=== PATIENT | female | born 1955 | race Caucasian/White ===

== ENCOUNTER → 2016-08-20 | Outpatient (CLI) | payer BC, OTHER ==
[~2016-08-20] MED LIST: CALCTAB30 PO; DICL75TA2 PO; GLC/500 PO; METO50TA16 PO; OMEP20CA59 PO; TRIA37.5 PO; VENL150C56 PO
[2016-08-20 12:22] LABS: BASO % 0.2 %; BASO ABS # 0.02 K/uL (0-0.2); COMPLETE YES; EOS % 1.9 %; HEMATOCRIT 40.5 % (37-47); IG% 0.3 %; LYMPH % 34.7 %; LYMPH ABS # 3.15 K/uL (1.2-3.4); MEAN CELL VOLUME 89.4 fL (80-100); MEAN CORPUSCULAR HGB CONC 33.6 g/dl (32-36); MEAN PLATELET VOLUME 11.6 fL (7.4-10.4); NEUT % 55.9 %; PLATELET COUNT 246 K/uL (130-400); RED BLOOD COUNT 4.53 M/uL (4.2-5.4); WHITE BLOOD COUNT 9.09 K/uL (4.8-10.8)
[2016-08-20 12:30] LABS: ALT/SGPT 47 U/L (12-78); AST/SGOT 24 U/L (15-37); BLOOD UREA NITROGEN 26 mg/dl (7-18); BUN/CREATININE RATIO 21.7 (10-20); CALCIUM 8.8 mg/dl (8.5-10.1); CARBON DIOXIDE 27 mmol/L (21-32); CHLORIDE 103 mmol/L (98-107); GLUCOSE 174 mg/dl (70-99); POTASSIUM 4.3 mmol/L (3.5-5.1); SODIUM 139 mmol/L (136-145)
[2016-08-20 12:33] LABS: ALB/GLOB RATIO 0.9 (0.9-2); ALKALINE PHOSPHATASE 117 U/L (45-117); CHOLESTEROL 122 mg/dl (0-200); CHOLESTEROL/HDL RATIO 3.1; HDL CHOLESTEROL 39 mg/dl; LDL CHOLESTEROL CALCULATED 46 mg/dl; TRIGLYCERIDES 184 mg/dl (0-150); VERY LOW DENSITY LIPOPROT CALC 37 mg/dl
[2016-08-20 12:56] LABS: ESTIMATED AVERAGE GLUCOSE 194 mg/dl; HA1C FLAG Normal (Normal)
== END | disposition home or self-care (01) ==
LOC: C.LABBFT 07:39
PROVIDERS: ATTEND Internal Medicine
DX: Z00.00 Encounter for general adult medical examination without abnormal findings (principal); E11.9 Type 2 diabetes mellitus without complications; E78.5 Hyperlipidemia, unspecified; R19.7 Diarrhea, unspecified; I10 Essential (primary) hypertension; R74.8 Abnormal levels of other serum enzymes

== ENCOUNTER → 2016-12-24 | Outpatient (CLI) | payer BC ==
[2016-12-24 12:21] LABS: AST/SGOT 40 U/L (15-37); BLOOD UREA NITROGEN 23 mg/dl (7-18); BUN/CREATININE RATIO 19.2 (10-20); CALCIUM 9.4 mg/dl (8.5-10.1); CARBON DIOXIDE 29 mmol/L (21-32); CHLORIDE 102 mmol/L (98-107); GLUCOSE 172 mg/dl (70-99); POTASSIUM 4.3 mmol/L (3.5-5.1); SODIUM 138 mmol/L (136-145)
[2016-12-24 12:25] LABS: ALKALINE PHOSPHATASE 124 U/L (45-117); ALT/SGPT 66 U/L (12-78)
[2016-12-24 12:36] LABS: ESTIMATED AVERAGE GLUCOSE 197 mg/dl; HA1C FLAG Normal (Normal)
[2016-12-24 12:51] LABS: RATIO 13.3 mcg/mg (0-30.0)
== END | disposition home or self-care (01) ==
LOC: C.LABBFT 07:51
PROVIDERS: ATTEND Internal Medicine
DX: I10 Essential (primary) hypertension (principal)

== ENCOUNTER → 2017-01-23 | Outpatient (CLI) | payer BC ==
--- NOTE | 2017-01-24 13:58 | MAMMOGRAPHY REPORT ---
BILATERAL DIGITAL SCREENING MAMMOGRAM TOMOSYNTHESIS WITH CAD: 01/23/2017 CLINICAL HISTORY: Routine screening. Patient has no complaints. TECHNIQUE: Breast tomosynthesis in addition to standard 2D mammography was performed. Current study was also evaluated with a Computer Aided Detection (CAD) system. COMPARISON: Comparison is made to exams dated: 01/23/2016 mammogram, 01/17/2015 mammogram, 02/19/2013 mamm ogram, 02/20/2012 mammogram, 02/19/2011 mammogram, and 01/03/2010 mammogram - [facility] . BREAST COMPOSITION: The tissue of both breasts is heterogeneously dense, which may obscure small mas ses. FINDINGS: No suspicious masses, calcifications, or areas of architectural distortion are noted in ei ther breast. There has been no significant interval change compared to prior exams. IMPRESSION: ACR BI-RADS CATEGORY 1: NEGATIVE There is no mammographic evidence of malignancy. A 1 year screening mammogram is recommended. The pa tient will receive written notification of the results. Approximately 10% of breast cancers are not detected with mammography. A negative mammographic report should not delay biopsy if a clinically suggestive mass is present. Aura Miles M.D. ah/:01/23/2017 16:48:06 Captain Fishing Vessel: Keerthi RODRÍGUEZ(Kamini)(M), [facility] letter sent: Normal 1/2 BI-RADS Code: ACR BI-RADS Category 1: Negative
== END | disposition home or self-care (01) ==
LOC: C.MAMM 16:31
PROVIDERS: ATTEND Internal Medicine
DX: Z12.31 Encounter for screening mammogram for malignant neoplasm of breast (principal)

== ENCOUNTER → 2018-01-26 | Outpatient (CLI) | payer BC ==
--- NOTE | 2018-01-27 14:57 | MAMMOGRAPHY REPORT ---
BILATERAL DIGITAL SCREENING MAMMOGRAM TOMOSYNTHESIS WITH CAD: 01/26/2018 CLINICAL HISTORY: Routine screening. TECHNIQUE: The study was acquired using full field digital technology and interpreted from soft copy. Breast tomosynthesis in addition to standard 2D mammography was performed. Current study was also ev aluated with a Computer Aided Detection (CAD) system. COMPARISON: Comparison is made to exams dated: 01/23/2017 mammogram, 01/23/2016 mammogram, 01/17/2015 jos mogram, 02/19/2013 mammogram, 02/20/2012 mammogram, and 02/19/2011 mammogram - [facility] . BREAST COMPOSITION: The tissue of both breasts is heterogeneously dense, which may obscure small mass es. FINDINGS: The parenchymal pattern is unchanged. No developing mass, architectural distortion or cluster of susp icious microcalcifications is seen in either breast. IMPRESSION: ACR BI-RADS CATEGORY 2: BENIGN There is no mammographic evidence of malignancy. A 1 year screening mammogram is recommended.( 019) The patient will receive written notification of the results. Some breast cancers are not detected with mammography. A negative mammographic report should not yvonne y biopsy if a clinically suggestive mass is present. Selene Mccartney M.D. ay/:01/26/2018 16:39:07 Merchandise Manager: RT Saqib(R)(M), [facility] letter sent: Normal 1/2 BI-RADS Code: ACR BI-RADS Category 2: Benign
== END | disposition home or self-care (01) ==
LOC: C.MAMM 16:20
PROVIDERS: ATTEND Family Medicine
DX: Z12.31 Encounter for screening mammogram for malignant neoplasm of breast (principal)

== ENCOUNTER 2024-08-03 06:46 | Inpatient (IN) ==
--- OUTSIDE RECORDS SUMMARY | 2024-08-03 06:50 | External Medical Summary | Summary of Care ---
Author Name Unknown Organization [facility] Address [address] [place] [address] Phone [phone] Care Team Providers Care Transit Bus Operator Name Role Phone EmmastephanieKeerthi carmichael Primary Care Provider Encounter Details Date Type Department Care Team (Late st Contact Info) Description 07/06/2024 Population Health External Data Unspecified Department Allergies Active Allergy Reactions Criticality Noted Date Comments Pollen Other (Please comment) 10/30/2021 Sinus symptoms, blocked ears Ragweed Other (Please comment) 10/30/2021 Sinus symptoms, blocked ears documented as of this encounter (statuses as of 07/06/2024) Medications B-12-SL 1000 MCG Sublingual Tablet Sublingual (Cyanocobalamin) Indications:Pare sthesias Place 1,000 mcg under the tongue daily. 90 Tab 1 0 Active Loratadine 10 MG Oral Capsule Take 1 Capsule by mouth in the morning. Active Omeprazole 20 MG Oral Capsule Delayed Release (PriLOSEC)Indica tions:Gastroesop hageal reflux disease, unspecified whether esophagitis present TAKE 1 CAPSULE BY MOUTH 1 HOUR PRIOR TO THE FIRST MEAL OF THE DAY 100 Capsule 3 05/31/2024 8:26 AM EST 4 Active Metoprolol Tartrate 50 MG Oral Tablet (Lopressor)Indic ations:HTN, goal below 130/80 TAKE ONE TABLET BY MOUTH IN THE MORNING AND ONE TABLET BEFORE BEDTIME 180 Tablet 3 04/12/2024 6:22 PM EDT 4 10/16/19 25 Active metFORMIN HCl ER 500 MG Oral Tablet Extended Release 24 Hour (Glucophage XR)Indications:P rediabetes TAKE TWO TABLETS BY MOUTH TWICE A DAY. 360 Tablet 05/24/2024 6:33 PM EST 4 05/22/20 25 Active Clobetasol Propionate 0.05 % External Ointment (Temovate)Indica tions:Lichen sclerosus APPLY FINGERTIP SIZED AMOUNT ALL OVER VULVA ONCE DAILY FOR FOUR WEEKS, THEN EVERY OTHER DAY FOR FOUR WEEKS, THEN FOR TWO DAYS A WEEK 60 g 3 05/24/2024 6:33 PM EST 4 Active Ondansetron HCl 4 MG Oral TabletIndication s:Nausea Take 1 Tablet by mouth every 8 hours as needed for Nausea. 45 Tablet 05/24/2024 6:33 PM EST 4 Active Rosuvastatin Calcium 20 MG Oral Tablet (Crestor)Indicat ions:Dyslipidemi a TAKE ONE TABLET BY MOUTH EVERY DAY. 100 Tablet 2 06/14/2024 5:59 PM EST 4 06/14/20 25 Active Losartan Potassium 50 MG Oral Tablet (Cozaar) TAKE ONE TABLET BY MOUTH IN THE MORNING. 100 Tablet 2 06/14/2024 5:59 PM EST 4 06/14/20 25 Active hydroCHLOROthiaz salbador 12.5 MG Oral Capsule TAKE ONE CAPSULE BY MOUTH IN THE MORNING. 100 Capsule 2 06/14/2024 5:59 PM EST 4 06/14/20 25 Active FLUoxetine HCl 40 MG Oral Capsule (PROzac)Indicati ons:Moderate major depression (HCC) TAKE ONE CAPSULE BY MOUTH EVERY MORNING 100 Capsule 2 06/14/2024 5:59 PM EST 4 06/14/20 25 Active documented as of this encounter (statuses as of 07/06/2024) Active Problems Problem Noted Date Diagnosed Date Hyperlipidemia 07/29/2022 H/O colonoscopy with polypectomy 08/24/2021 Lichen sclerosus 04/09/2021 Moderate episode of recurrent major depressive d isorder 09/20/2020 Prediabetes 06/29/2018 Overview: Per Prediabetes protocol #1 HTN, goal below 130/80 04/08/2018 Moderate major depression 07/24/2017 Sciatica 11/11/2003 Overview (11/11/2003): Secondary to facet arthropathy L5-S1, left. Displacement of lumbar inter vertebral disc without myelopathy 11/11/2003 Overview (11/11/2003): Midline/left L5-S1 Reflux esophagitis 11/11/2003 HYPERTENSION NOS 11/11/2003 documented as of this encounter (statuses as of 07/06/2024) Immunizations Name Administration Dates Next Due COVID-19 mRNA, LNP-s, No Pre serve, 2-Dose Series ([employer]) 05/15/2021,11/23/2020,11/02/2020 PPD 03/25/2018 Seasonal Influenza, High Dos e, Trivalent, PF, IM (Fluzone HD) 04/26/2024 Seasonal Influenza, PF, 6 M & above, IM , (FluLaval or Fluzone) 03/21/2020,05/17/2019,03/25/2018 Seasonal Influenza, QUAD, wi th Preserv, 6 mons & Above, 0.5 mL, IM 03/16/2017 Seasonal Influenza, Quadriva lent Hd (Fluzone Hd) 05/19/2023,04/29/2022,03/23/2021 documented as of this encounter Social History Tobacco Use Types Packs/Day Years Used Date Smoking Tobacco: Never Passive Smoke Exposure: Past Smokeless Tobacco: Never Alcohol Use Standard Drinks/Week Comments No 0 (1 standard drink = 0.6 oz pur e alcohol) PHQ-2 Answer Date Recorded PHQ Adult Total Score 0 05/24/2024 Hunger Vital Sign Answer Date Recorded Within the past 12 months, y ou worried that your food would run out before you got the money to buy more. Never true 05/24/20 24 Within the past 12 months, t he food you bought just didn't last and you didn't have money to get more. Never true 05/24/2024 Childcare Answer Date Recorded Do you feel overwhelmed with taking care of a child, family member or friend? No 05/24/2024 Does your family need help f inding childcare? (Household - for ages 0-17 years) Not on file 05/24/2024 Clothing Answer Date Recorded Have you been unable to get clothing when it was really needed? No 05/24/2024 Is your family able to get c lothes or diapers when needed? (Household - for ages 0-17 years) Not on file 05/24/2024 Personal Safety Answer Date Recorded Do you feel unsafe or have concerns for your saf ety? No 05/24/2024 Do you have concerns for you r family's safety? (Household - for ages 0-17 years) Not on file 05/24/2024 Utilities Answer Date Recorded Do you have trouble paying y our heating, water, or electric bill? No 05/24/2024 Is your family able to pay t he heat, water, or electric bill? (Household - for ages 0-17 years) Not on file 05/24/2024 Does your family have access to good internet? (Household - for ages 0-17 years) Not on file 05/24/2024 Employment Status Answer Date Recorded Are you unemployed or without regular income? No 05/24/2024 Does the [facility] have a [facility] source [facility] income? (Household - for ages 0-17 years) Not on file 05/24/2024 Social Connections Answer Date Recorded How often do you feel lonely or isolated from th ose around you? Never 05/24/2024 Financial Resource Strain Answer Date R ecorded Do you have any trouble payi ng for your medications, or do you think you might in the future? No 05/24/2024 Does your family have troubl e paying for medicine? (Household - for ages 0-17 years) Not on file 05/24/2024 Transportation Needs Answer Date Record ed Do you have trouble getting a ride to medical visits or work? (Adult - for ages 18 years and over) Not on file 05/24/2024 Does your family have a hard time getting a ride to doctors visits? (Household - for ages 0-17 years) Not on file 05/24/2024 Has lack of transportation k ept you from medical appointments, meetings, work, or from getting things needed for daily living? Check all that apply. No 05/24/2024 Do you (or your family) have trouble finding or paying for a ride (transportation)? (Household - for ages 0-17 years) Not on file 05/24/2024 Housing Stability Answer Date Recorded Do you currently live in a s helter or have no steady place to sleep at night? No 05/24/2024 Do you think you are at risk of becoming homeless? (Adult - for ages 18 years and over) Not on file 05/24/2024 Does your family worry about paying for your home or becoming homeless? (Household - for ages 0-17 years) Not on file 1 07/25/2023 Are you homeless or worried that you might be in the future? No 05/24/2024 Are you (or your family) arlet eless or worried that you might be in the future? (Household - for ages 0-17 years) Not on file Food Insecurity Answer Date Recorded Do you need food for this week? No 05/24/2024 Are you able to get enough f ood for your family? (Household - for ages 0-17 years) Not on file 05/24/2024 Does your family need food t his week? (Household - for ages 0-17 years) Not on file 05/24/2024 Do you always have enough fo od for your family? (Household - for ages 0-17 years) Not on file 05/24/2024 Comments No Sex and Gender Information Value Date Recorded Sex Assigned at Female 01/27/2023 10:12 AM EDT Legal Sex Female 5:30 AM EST Gender Identity Female 01/27/2023 10:12 AM EDT Sexual Orientation Straight 01/27/2023 10 :12 AM EDT documented as of this encounter Plan of Treatment Upcoming Encounters Date Type Department Care Team (Late st Contact Info) Description 09/27/2024 9:20 AM EDT Office Visit Family Practice [address] [place] [address] [place] [address] Keerthi Zuluaga DO [address] [place] [address] Scheduled Procedures Name Priority Associated Diagnoses Date/Ti me COLONOSCOPY FLEXIBLE PROXIMAL DIAGNOSTIC Recall History of colon polyps Health Maintenance Due Date Last Done Comments DTap/Tdap Vaccines (1 - Tdap) 10/16/1974 Cologuard 10/16/2000 Fecal Occult Blood Test 10/16/2000 Sigmoidoscopy 10/16/2000 Pneumococcal Vaccine: 50+ Years (1 of 1 - PCV) 10/16/2005 Zoster Vaccines (1 of 2) 10/16/2005 Adult Wellness Visit 01/28/2024 01/27/2023 COVID-19 Vaccine ( - season) 2024 05/15/2021, 11/23/2020, 11/02/2020 Depression Monitoring 05/24/2025 05/24/2024 GFR 05/24/2025 05/24/2024, 09/2022, 10/18/2022, Additional history exists HbA1c 05/24/2025 05/24/2024, 09/2022, 04/23/2022, Additional history exists Mammogram 06/14/2025 06/14/2024, 05/18, 06/11/2023, Additional history exists Colonoscopy 12/05/2026 12/05/2021, 11/15, 08/28/2018, Additional history exists Colorectal Cancer Screening 12/05/2026 Albumin/Creatinine Ratio 05/24/2027 024, 05/19/2023, 04/29/2022, Additional history exists DXA Scan 05/08/2028 05/08/2021, 05/08/2021 Lipid Panel 05/24/2029 05/24/2024, 09/2022, 04/23/2022, Additional history exists Pap Smear Discontinued 05/17/2020, 070 10/2015, 12/14/2014 (Done elsewhere) RETIRED - COLONOSCOPY-EVERY 5 YRS AGES 18-100 Discontinued 12/05/2021, 12/05/2021, 08/28/2018, Additional history exists Influenza Vaccine (FLU shot) Completed 04/26/2024, 04/26/2024, 05/19/2023, Additional history exists HPV (Gardasil) Vaccine Aged Out No lo nger eligible based on patient's age to complete this topic Hepatitis B Vaccine Aged Out No longe r eligible based on patient's age to complete this topic MENINGOCOCCAL (MENACTRA/MENVEO) Aged Out No longer eligible based on patient's age to complete this topic documented as of this encounter Medical Devices Not on filedocumented as of this encounter Care Teams Transit Bus Operator Relationship Specialty Start Date End Date Keerthi Zuluaga DO [address] [place] [facility] [place] [address] PCP - General Family Medicine 01/24/24 documented as of this encounter
--- OUTSIDE RECORDS SUMMARY | 2024-08-03 06:51 | External Medical Summary | Summary of Care ---
Author Name Unknown Organization [facility] Address [address] [place] [address] Phone [phone] Care Team Providers Care Aircrewman Name Role Phone Keerthi Zuluaga DO Primary Care Provider [phone] Reason for Visit * Reason Onset Date Comments Appointment 06/23/2024 Encounter Details Date Type Department Care Team (Late st Contact Info) Description 06/23/2024 Telephone Family Practice [address] [facility], [place] [address] [place] [address] Keerthi Zuluaga DO [address] [place] [address] Appointment Allergies Active Allergy Reactions Criticality Noted Date Comments Pollen Other (Please comment) 10/30/2021 Sinus symptoms, blocked ears Ragweed Other (Please comment) 10/30/2021 Sinus symptoms, blocked ears documented as of this encounter (statuses as of 06/23/2024) Medications B-12-SL 1000 MCG Sublingual Tablet Sublingual [...] 5:59 PM EST 4 06/14/20 25 Active Amoxicillin-Pot Clavulanate 875-125 MG Oral Tablet (Augmentin) Take 1 Tablet by mouth in the morning and 1 Tablet before bedtime. Do all this for 10 days. 20 Tablet 5 07/03/19 25 Active documented as of this encounter (statuses as of 06/23/2024) Active Problems Problem Noted Date Diagnosed Date [...] as of this encounter (statuses as of 06/23/2024) Immunizations Name Administration Dates Next Due COVID-19 mRNA, LNP-s, No Pre serve, 2-Dose Series ([employer]) 05/15/2021,11/23/2020,11/02/2020 PPD 03/25/2018 Seasonal Influenza, High Dos [...] No 05/24/2024 Does the household have a re lar source of income? (Household - for ages [...] AM EDT documented as of this encounter Miscellaneous Notes * Telephone Encounter - Ladonna Campuzano LPN - 06/23/2024 2:03 PM EST Call placed to patient and relayed information from Dr. Zuluaga. Pt acknowledged understanding andstates she will comply. No questions at this time. * Telephone Encounter - Keerthi Zuluaga DO - 06/23/2024 1:43 PM EST Please let pt know that I sent Augmentin. OV if worsening or no improvement. * Telephone Encounter - Ladonna Campuzano LPN - 06/23/2024 12:04 PM EST Call placed to patient. Reports the following symptoms: Nasal congestion, states sinus pressure is bad - pain around nose, sinuses. Having yellow sinus drainage. No new ear pain or headaches. Productive cough, having coughing episodes. No shortness of breath when not coughing. States she feels she has a sinus infection. Reports symptoms have been going for approx 3 weeks. No fever that she is aware of. Has not done a COVID test. Please advise. [facility] in [place]. * Telephone Encounter - Kia Velazco OSA - 06/23/2024 8:03 AM EST Patient is requesting appt today and there is no available appts. Please see call details. documented in this encounter Plan of Treatment Upcoming Encounters Date Type Department Care Team (Late st Contact Info) Description 09/27/2024 9:20 AM EDT Office Visit Family Practice [address] [place] [address] [place] [address] Keerthi Zuluaga DO [address] [facility], [place] [address] Scheduled Procedures Name Priority Associated Diagnoses Date/Ti me COLONOSCOPY FLEXIBLE PROXIMAL DIAGNOSTIC Recall History of colon polyps Health Maintenance Due Date Last Done Comments DTap/Tdap Vaccines (1 - Tdap) 10/16/1974 Cologuard 10/16/2000 Fecal Occult Blood Test 10/16/2000 Sigmoidoscopy 10/16/2000 Pneumococcal Vaccine: 50+ Years (1 of 1 - PCV) 10/16/2005 Zoster Vaccines (1 of 2) 10/16/2005 Adult Wellness Visit 01/28/2024 01/27/2023 COVID-19 Vaccine ( season) 2024 05/15/2021, 11/23/2020, 11/02/2020 Depression Monitoring 05/24/2025 05/24/2024 GFR 05/24/2025 05/24/2024, 09/2022, 10/18/2022, Additional history exists HbA1c 05/24/2025 05/24/2024, 09/2022, 04/23/2022, Additional history exists Mammogram 06/14/2025 06/14/2024, 05/17, 06/11/2023, Additional history exists Colonoscopy 12/05/2026 12/05/2021, 11/15, 08/28/2018, Additional history exists Colorectal Cancer Screening 12/05/2026 Albumin/Creatinine Ratio 05/24/2027 024, 05/19/2023, 04/29/2022, Additional history exists DXA Scan 05/08/2028 05/08/2021, 05/08/2021 Lipid Panel 05/24/2029 05/24/2024, 09/2022, 04/23/2022, Additional history exists Pap Smear Discontinued 05/17/2020, 10/2015, 12/14/2014 (Done elsewhere) RETIRED - COLONOSCOPY-EVERY [...] filedocumented as of this encounter Care Teams Aircrewman Relationship Specialty Start Date End Date Keerthi Zuluaga DO [address] [place] [address] PCP - General Family Medicine 01/24/24 documented as of this encounter
--- OUTSIDE RECORDS SUMMARY | 2024-08-03 06:51 | External Medical Summary | Summary of Care ---
Author Name Unknown Organization [facility] Address [address] [place] [address] Phone [phone] Care Team Providers Care Dividend Clerk Name Role Phone Keerthi Phan DO Primary Care Provider Reason for Visit * Reason Comments Medication Refill Encounter Details Date Type Department Care Team (Late st Contact Info) Description 05/21/2024 Refill Family Practice [address], [facility] [address] [place] [phone] Keerthi Phan DO [address] [place] [address] Encounter for long-term (current) use of medications*; Prediabetes; Hyperlipidemia, unspecified hyperlipidemia type Allergies Active Allergy Reactions Criticality Noted Date Comments Pollen Other (Please comment) 10/30/2021 Sinus symptoms, blocked ears Ragweed Other (Please comment) 10/30/2021 Sinus symptoms, blocked ears documented as of this encounter (statuses as of 05/25/2024) Medications B-12-SL 1000 MCG Sublingual Tablet Sublingual (Cyanocobalamin )Indications:Pa resthesias Place 1,000 mcg under the tongue daily. 90 Tab 1 0 Active Loratadine 10 MG Oral Capsule Take 1 Capsule by mouth in the morning. Active Omeprazole 20 MG Oral Capsule Delayed Release (PriLOSEC)Indic ations:Gastroes ophageal reflux disease, unspecified whether esophagitis present TAKE 1 CAPSULE BY MOUTH 1 HOUR PRIOR TO THE FIRST MEAL OF THE DAY 100 Capsule 3 02/25/2024 1:49 PM EDT 4 Active Rosuvastatin Calcium 20 MG Oral Tablet (Crestor)Indica tions:Dyslipide sirisha TAKE ONE TABLET BY MOUTH EVERY DAY. 100 Tablet 2 03/08/2024 8:53 AM EDT 4 08/22/19 25 Active Losartan Potassium 50 MG Oral Tablet (Cozaar) TAKE ONE TABLET BY MOUTH IN THE MORNING. 100 Tablet 2 03/08/2024 8:53 AM EDT 4 08/22/19 25 Active hydroCHLOROthia zide 12.5 MG Oral Capsule TAKE ONE CAPSULE BY MOUTH IN THE MORNING. 100 Capsule 2 03/08/2024 8:53 AM EDT 4 08/22/19 25 Active FLUoxetine HCl 40 MG Oral Capsule (PROzac)Indicat ions:Moderate major depression (HCC) TAKE ONE CAPSULE BY MOUTH EVERY MORNING 100 Capsule 2 03/08/2024 8:53 AM EDT 4 08/22/19 25 Active Metoprolol Tartrate 50 MG Oral Tablet (Lopressor)Falguni cations:HTN, goal below 130/80 TAKE ONE TABLET BY MOUTH IN THE MORNING AND ONE TABLET BEFORE BEDTIME 180 Tablet 3 04/12/2024 6:22 PM EDT 4 10/16/19 25 Active metFORMIN HCl ER 500 MG Oral Tablet Extended Release 24 Hour (Glucophage XR)Indications: Prediabetes TAKE TWO TABLETS BY MOUTH TWICE A DAY. 360 Tablet 05/24/2024 6:33 PM EST 4 05/22/20 25 Active metFORMIN HCl ER 500 MG Oral Tablet Extended Release 24 Hour (Glucophage XR)Indications: Prediabetes TAKE TWO TABLETS BY MOUTH TWICE A DAY. 360 Tablet 3 02/23/2024 12:56 PM EDT 3 05/21/20 24 Discontinu ed(Refill) Clobetasol Propionate 0.05 % External Ointment (Temovate)Indic ations:Lichen sclerosus APPLY FINGERTIP SIZED AMOUNT ALL OVER VULVA ONCE DAILY FOR FOUR WEEKS, THEN EVERY OTHER DAY FOR FOUR WEEKS, THEN FOR TWO DAYS A WEEK 60 g 3 09/24/2023 12:49 PM EDT 4 05/24/20 24 Discontinu ed(Refill) Ondansetron HCl 4 MG Oral Tablet Take 1 Tablet by mouth every 8 hours as needed for Nausea. 45 Tablet 09/24/2023 12:49 PM EDT 4 05/24/20 24 Discontinu ed(Refill) documented as of this encounter (statuses as of 05/25/2024) Active Problems Problem Noted Date Diagnosed Date [...] as of this encounter (statuses as of 05/25/2024) Immunizations Name Administration Dates Next Due COVID-19 mRNA, LNP-s, No Pre serve, 2-Dose Series ([employer]) 05/15/2021,11/23/2020,11/02/2020 PPD 03/25/2018 Seasonal Influenza, High Dos [...] 05/24/2024 Does the household have a re gular source of income? (Household - for ages [...] encounter Miscellaneous Notes * Telephone Encounter - Alfonso Lezama - 05/25/2024 9:35 AM EST Received message from [facility] regarding patient needing labs. Patient was notified. Successfully contacted patient and provided [facility] message. * Telephone Encounter - Sharonda Myrick [facility] - 05/22/2024 9:54 AM ESTSigned Prescriptions: Disp Refills metFORMIN HCl ER 500 MG Oral Tablet Extend*360 Ta*0 Sig: TAKE TWO TABLETS BY MOUTH TWICE A DAY. Authorizing Provider: KEERTHI PHAN Ordering User: SHARONDA MYRICK * Telephone Encounter - Sharonda Myrick [facility] - 05/22/2024 9:53 AM EST Provided 90 days supply with 0 refill(s). Per refill protocol patient should have routine labs on file within past year. Reviewed AMP report, Care Gaps/Health Maintenance, medications list, and for any routine labs typically ordered for this patient. Lab orders placed. Please contact patient to advise of labs ordered for blood draw AND URINE specimen (patient will have to be able to void to provide sample). Recommend patient to fast if able for labs. Patient may still have water and regular medications. Advise to obtain labs before requesting the next refill. ThanksSharonda Clinical Pharmacist [facility] ([facility]) [phone] 05/22/2024, 9:53 AM documented in this encounter Plan of Treatment Upcoming Encounters Date Type Department Care Team (Late st Contact Info) Description 06/14/2024 12:30 PM EST Imaging Radiology [facility] 1st [facility], [facility] [address] [place] [address] 09/27/2024 9:20 AM EDT Office Visit Family Practice [address], [facility] [address] [place] [phone] [facility]thi Phan [facility] [address] [facility] [address] Scheduled Procedures Name Priority Associated Diagnoses Date/Ti me COLONOSCOPY FLEXIBLE PROXIMAL DIAGNOSTIC Recall History of colon polyps Health Maintenance Due Date Last Done Comments Cologuard 10/16/2000 Fecal Occult Blood Test 10/16/2000 Sigmoidoscopy 10/16/2000 Adult Wellness Visit 01/28/2024 01/27/2023 COVID-19 Vaccine ( season) 2024 05/15/2021, 11/23/2020, 11/02/2020 Postponed from 02/15/2024 (Patient Declined After Education) DTap/Tdap Vaccines (1 - Tdap) 05/25/2024 Postponed from 10/16/1974 (Patient Declined After Education) Pneumococcal Vaccine: 65+ Years (1 of 1 - PCV) 05/25/2024 Postponed from 10/16/2020 (Patient Declined After Education) Zoster Vaccines (1 of 2) 05/25/2024 Pos tponed from 10/16/2005 (Patient Declined After Education) Mammogram 06/11/2024 06/11/2023, 05/17, 06/02/2023, Additional history exists Depression Monitoring 05/24/2025 05/24/2024 GFR 05/24/2025 05/24/2024, 09/2022, 10/18/2022, Additional history exists HbA1c 05/24/2025 05/24/2024, 09/2022, 04/23/2022, Additional history exists Colonoscopy 12/05/2026 12/05/2021, 11/15, 08/28/2018, Additional history exists Colorectal Cancer Screening 12/05/2026 Albumin/Creatinine Ratio 05/24/20272 024, 05/19/2023, 04/29/2022, Additional history exists DXA [...] Not on filedocumented as of this encounter Results * ALBUMIN / CREATININE RATIO, URINE (05/24/2024 10:48 AM EST) Albumin, Random Urine <1.20 mg/dL 05/25/2024 12:08 AM EST [facility] Creatinine, Random Urine 109 mg/dL 05/25/2024 12:08 AM EST [facility] Albumin / Creatinine Ratio, Urine <11 <30 mg/g Creat 05/25/2024 12:08 AM EST [facility] Urine Urine specimen obtained by clean catch procedure / Unknown Non-blood Collection / Unknown 05/24/2024 10:48 AM EST 05/24/2024 10:48 AM EST Narrative [facility] - 05/25/2024 12:08 AM EST Normal: <30 mg/g creatinine High: 30-300 mg/g creatinine Very High: >300 mg/g creatinine Nephrotic: >2200 mg/g creatinine Sharonda Myrick [facility] LAB URINE ORDERABLES Final R esult [facility] [address] [place] [address] * (ABNORMAL) VITAMIN B12 (05/24/2024 10:44 AM EST) Vitamin B12 1,862(H) 232 - 1,245 pg/mL 05/25/2024 5:28 AM EST [facility] Blood Venous blood specimen / Unknown Venipuncture / Unknown 05/24/2024 10:44 AM EST 05/24/2024 10:44 AM EST Sharonda Myrick [facility] LAB BLOOD ORDERABLES Final R esult Performing Organization Address City/[facility]/ZIP Co de Phone Number LAB[facility]ATORY [facility] [address] [place] [address] * LIPID PANEL WITH DIRECT LDL IF TG IS HIGH (05/24/2024 10:44 AM EST) Pathologist [facility] Triglycerides 113 <=174 mg/dL 05/25/2024 4:08 AM EST [facility] Comment: Triglyceride Reference Ranges (mg/dL): <150 Acceptable 150-174 Borderline high 175-499 High >=500 Very high Cholesterol 133 <200 mg/dL 05/25/2024 4:08 AM EST [facility] Comment: Total Cholesterol Reference Ranges (mg/dL): <200 Desirable 200-239 Borderline high >=240 High HDL Cholesterol 53 >49 mg/dL 4:08 AM EST [facility] Comment: HDL Cholesterol Reference Ranges (mg/dL): >=60 High (Desirable) <50 Low (Undesirable) For Females <40 Low (Undesirable) For Males Non-HDL Cholesterol 80 <=159 mg/dL 05/25/2024 4:08 AM EST [facility] Comment: Non-HDL Cholesterol Reference Range (mg/dL): <100 Target level for high risk ASCVD patient <130 Optimal for general population 130-159 Near optimal for general population 160-189 Borderline High 190-219 High >=220 Very High LDL Cholesterol 57 <=129 mg/dL 05/25/2024 4:08 AM EST LAB[facility] Comment: LDL Cholesterol Reference Ranges (mg/dL): <70 Target level for high risk ASCVD patient <100 Optimal for general population 100-129 Near optimal for general population 130-159 Borderline high 160-189 High >=190 Very high Blood Venous blood specimen / Unknown Venipuncture / Unknown 05/24/2024 10:44 AM EST 05/24/2024 10:44 AM EST [facility] LAB BLOOD ORDERABLES Final R esult Performing Organization Address [facility] de Phone Number LABORATORY [facility] [address] [place] [address] * (ABNORMAL) HEMOGLOBIN A1C (05/24/2024 10:44 AM EST) Hemoglobin A1C 6.5(H) 4.0 - 5.6 % 05/25/2024 4:13 AM EST [facility]ORY [facility] Comment:The use of HbA1c to monitor glycemic status is based on normal hemoglobin and HbA composition. This test should not be used in patients with abnormal hemoglobin that affects the half life of the red blood cell or the in vivo glycation rates. Estimated Average Glucose 140(H) <126 mg/dL 05/25/2024 4:13 AM EST [facility]ORY [facility] Blood Venous blood specimen / Unknown Venipuncture / Unknown 05/24/2024 10:44 AM EST 05/24/2024 10:44 AM EST [facility] LAB BLOOD ORDERABLES Final R [facility] Performing Organization Address [facility] de Phone Number LABORATORY [address] [address] * BASIC METABOLIC PANEL (05/24/2024 10:44 AM EST) BUN 18 6 - 20 mg/dL 05/25/2024 4:08 AM EST [facility] CREATININE 0.9 0.5 - 1.0 mg/dL 05/25/2024 4:08 AM EST [facility] EGFR 74 >=60 mL/min 05/25/2024 4:08 AM EST [facility] Comment:eGFR is calculated b ased on the CKD-EPI 2020 equation. SODIUM 138 135 - 146 mmol/L 05/25/2024 4:08 AM EST [facility] POTASSIUM 4.7 3.5 - 5.1 mmol/L 05/25/2024 4:08 AM EST [facility] CHLORIDE 99 98 - 107 mmol/L 05/25/2024 4:08 AM EST [facility] CO2 26 22 - 32 mmol/L 05/25/2024 4:08 AM EST [facility] ANION GAP 13 7 - 15 mmol/L 05/25/2024 4:08 AM EST [facility] GLUCOSE 70 70 - 120 mg/dL 05/25/2024 4:08 AM EST [facility] CALCIUM 10.2 8.4 - 10.2 mg/dL 05/25/2024 4:08 AM EST [facility] Blood Venous blood specimen / Unknown Venipuncture / Unknown 05/24/2024 10:44 AM EST 05/24/2024 10:44 AM EST Sharonda Myrick [facility] LAB BLOOD ORDERABLES Final R esult [facility] [address] [place] [address] documented in this encounter Visit Diagnoses Diagnosis Encounter for long-term (current) use of medications- Primary Encounter for long-term (current) use of other medications Prediabetes Other abnormal glucose Hyperlipidemia, unspecified hyperlipidemia type documented in this encounter Care Teams Dividend Clerk Relationship Specialty Start Date End Date Keerthi Phan DO [address] [place] [address] PCP - General Family Medicine 01/24/24 documented as of this encounter
--- OUTSIDE RECORDS SUMMARY | 2024-08-03 06:51 | External Medical Summary ---
Author Name Unknown Address Unknown Organization K01:[facility] [address] [facility] [address] [facility] [address] Laboratory Report Ordering Provider Test Date Status KING CANALES 05/24/2024 10:44:53 Final Observation Date Value Abnormality Reference (Units ) Status BUN 05/24/2024 10:44:53 18 6-20 (mg/dL) Final Creatinine 05/24/2024 10:44:53 0.9 0.5-1.0 (mg/dL) Final Glomerular filtration rate/1.73 sq M.predicted [Volume Rate/Area] in Serum, Plasma or Blood by Creatinine-based formula (CKD-EPI) 05/24/2024 10:44:53 74 >=60 (mL/min) Final eGFR is calculated based on the CKD-EPI 2020 equation. Sodium 05/24/2024 10:44:53 138 135-146 (m mol/L) Final Potassium 05/24/2024 10:44:53 4.7 3.5-5.1 (m mol/L) Final Cl 05/24/2024 10:44:53 99 98-107 (mm ol/L) Final CO2 05/24/2024 10:44:53 26 22-32 (mmo l/L) Final Anion gap 05/24/2024 10:44:53 13 7-15 (mmol /L) Final Glucose 05/24/2024 10:44:53 70 70-120 (mg /dL) Final Calcium 05/24/2024 10:44:53 10.2 8.4-10.2 ( mg/dL) Final Performing Location [facility] [address] [facility] [address]
--- OUTSIDE RECORDS SUMMARY | 2024-08-03 06:51 | External Medical Summary ---
Author Name Unknown Address Unknown Organization K01:[facility]ORY [facility] - [facility] [address] [facility] [address] Laboratory Report Ordering Provider Test Date Status KING CANALES 05/24/2024 10:44:53 Final Observation Date Value Abnormality Reference (Units ) Status HbA1C 05/24/2024 10:44:53 6.5 Above high normal 4. 0-5.6 (%) Final The use of HbA1c to monitor glycemic status is based on normal hemoglobin and HbA composition. This test should not be used in patients with abnormal hemoglobin that affects the half life of the red blood cell or the in vivo glycation rates. Glucose, estimated average 05/24/2024 10:44:53 140 Above high normal <126 (mg/dL) Mil sheridan Performing Location LAB[facility] [address] [facility] [address] [facility] [address]
--- OUTSIDE RECORDS SUMMARY | 2024-08-03 06:51 | External Medical Summary ---
Author Name Unknown Address Unknown Organization K01:LABORATORY [facility] - [address] [place] [address] Laboratory Report Ordering Provider Test Date Status KING CANALES 05/24/2024 10:48:35 Final Normal: <30 mg/g creatinine< br/>High: 30-300 mg/g creatinine
Very High: >300 mg/g creatinine
Nephrotic: >2200 mg/g creatinine Observation Date Value Abnormality Reference (Units ) Status Albumin, Urine 05/24/2024 10:48:35 <1.20 (mg/dL) Final Creatinine, Urine 05/24/2024 10:48:35 109 (mg/dL) Final Albumin/Creatinine [Mass Ratio] in Urine 05/24/2024 10:48:35 <11 <30 (mg/g Creat) Final Performing Location LABORATORY [facility] - [address] [place] [address]
--- OUTSIDE RECORDS SUMMARY | 2024-08-03 06:51 | External Medical Summary | Summary of Care ---
Author Name Unknown Organization [facility] Address [address] [place] [address] Phone [phone] Care Team Providers Care Cruller Maker Machine Name Role Phone Keerthi Phan DO Primary Care Provider Reason for Visit * Reason Comments Medication Refill Encounter Details Date Type Department Care Team (Late st Contact Info) Description 06/12/2024 Refill Family Practice [address], [place] [address] [place] [phone] Keerthi Phan DO [address] [place] [address] Dyslipidemia; Moderate major depression (HCC) Allergies Active Allergy Reactions Criticality Noted Date Comments Pollen Other (Please comment) 10/30/2021 Sinus symptoms, blocked ears Ragweed Other (Please comment) 10/30/2021 Sinus symptoms, blocked ears documented as of this encounter (statuses as of 06/14/2024) Medications B-12-SL 1000 MCG Sublingual Tablet Sublingual [...] Active Clobetasol Propionate 0.05 % External Ointment (Temovate)Indic ations:Lichen sclerosus APPLY FINGERTIP SIZED AMOUNT ALL OVER VULVA ONCE DAILY FOR FOUR WEEKS, THEN EVERY OTHER DAY FOR FOUR WEEKS, THEN FOR TWO DAYS A WEEK 60 g 3 05/24/2024 6:33 PM EST 4 Active Ondansetron HCl 4 MG Oral TabletIndicatio ns:Nausea Take 1 Tablet by mouth every 8 hours as needed for Nausea. 45 Tablet 05/24/2024 6:33 PM EST 4 Active Rosuvastatin Calcium 20 MG Oral Tablet (Crestor)Indica tions:Dyslipide sirisha TAKE ONE TABLET BY MOUTH EVERY DAY. 100 Tablet 2 4 06/14/20 25 Active Losartan Potassium 50 MG Oral Tablet (Cozaar) TAKE ONE TABLET BY MOUTH IN THE MORNING. 100 Tablet 2 4 06/14/20 25 Active hydroCHLOROthia zide 12.5 MG Oral Capsule TAKE ONE CAPSULE BY MOUTH IN THE MORNING. 100 Capsule 2 4 06/14/20 25 Active FLUoxetine HCl 40 MG Oral Capsule (PROzac)Indicat ions:Moderate major depression (HCC) TAKE ONE CAPSULE BY MOUTH EVERY MORNING 100 Capsule 2 4 06/14/20 25 Active Rosuvastatin Calcium 20 MG Oral Tablet (Crestor)Indica tions:Dyslipide sirisha TAKE ONE TABLET BY MOUTH EVERY DAY. 100 Tablet 2 03/08/2024 8:53 AM EDT 4 06/12/20 24 Discontinu ed(Refill) Losartan Potassium 50 MG Oral Tablet (Cozaar) TAKE ONE TABLET BY MOUTH IN THE MORNING. 100 Tablet 2 03/08/2024 8:53 AM EDT 4 06/12/20 24 Discontinu ed(Refill) hydroCHLOROthia zide 12.5 MG Oral Capsule TAKE ONE CAPSULE BY MOUTH IN THE MORNING. 100 Capsule 2 03/08/2024 8:53 AM EDT 4 06/12/20 24 Discontinu ed(Refill) FLUoxetine HCl 40 MG Oral Capsule (PROzac)Indicat ions:Moderate major depression (HCC) TAKE ONE CAPSULE BY MOUTH EVERY MORNING 100 Capsule 2 03/08/2024 8:53 AM EDT 4 06/12/20 24 Discontinu ed(Refill) documented as of this encounter (statuses as of 06/14/2024) Active Problems Problem Noted Date Diagnosed Date [...] as of this encounter (statuses as of 06/14/2024) Immunizations Name Administration Dates Next Due COVID-19 mRNA, LNP-s, No Pre serve, 2-Dose Series ([employer]) 05/15/2021,11/23/2020,11/02/2020 PPD 03/25/2018 Seasonal Influenza, High Dos [...] encounter Miscellaneous Notes * Telephone Encounter - Radha Bhakta RPh - 06/14/2024 9:07 AM ESTSigned Prescriptions: Disp Refills Rosuvastatin Calcium 20 MG Oral Tablet (Cr*100 Ta*2 Sig: TAKE ONE TABLET BY MOUTH EVERY DAY. Authorizing Provider: KEERTHI PHAN Ordering User: RADHA BHAKTA Losartan Potassium 50 MG Oral Tablet (Coza*100 Ta*2 Sig: TAKE ONE TABLET BY MOUTH IN THE MORNING. Authorizing Provider: KEERTHI PHAN Ordering User: RADHA BHAKTA hydroCHL OROthiazide 12.5 MG Oral Capsule 100 Ca*2 Sig: TAKE ONE CAPSULE BY MOUTH IN THE MORNING. Authorizing Provider: KEERTHI PHAN Ordering User: RADHA BHAKTA FLUoxetine HCl 40 MG Oral Capsule (PROzac) 100 Ca*2 Sig: TAKE ONE CAPSULE BY MOUTH EVERY MORNING Authorizing Provider: KEERTHI PHAN Ordering User: RADHA BHAKTA * Telephone Encounter - Transfer User, Donal Montalvo - 06/12/2024 12:15 AM ESTPending Prescriptions: Disp Refills Rosuvastatin Calcium 20 MG Oral Tablet (Cr*100 Ta*2 Sig: TAKE ONE TABLET BY MOUTH EVERY DAY. Losartan Potassium 50 MG Oral Tablet (Coza*100 Ta*2 Sig: TAKE ONE TABLET BY MOUTH IN THE MORNING. * Telephone Encounter - Transfer User, Rx Adt - 06/12/2024 12:15 AM ESTPending Prescriptions: Disp Refills Rosuvastatin Calcium 20 MG Oral Tablet (Cr*100 Ta*2 Sig: TAKE ONE TABLET BY MOUTH EVERY DAY. Losartan Potassium 50 MG Oral Tablet (Coza*100 Ta*2 Sig: TAKE ONE TABLET BY MOUTH IN THE MORNING. hydroCHLOROthiazide 12.5 MG Oral Capsule 100 Ca*2 Sig: TAKE ONE CAPSULE BY MOUTH IN THE MORNING. * Telephone Encounter - Transfer User, Rx Adt - 06/12/2024 12:15 AM ESTPending Prescriptions: Disp Refills Rosuvastatin Calcium 20 MG Oral Tablet (Cr*100 Ta*2 Sig: TAKE ONE TABLET BY MOUTH EVERY DAY. Losartan Potassium 50 MG Oral Tablet (Coza*100 Ta*2 Sig: TAKE ONE TABLET BY MOUTH IN THE MORNING. hydroCHLOROthiazide 12.5 MG Oral Capsule 100 Ca*2 Sig: TAKE ONE CAPSULE BY MOUTH IN THE MORNING. FLUoxetine HCl 40 MG Oral Capsule (PROzac) 100 Ca*2 Sig: TAKE ONE CAPSULE BY MOUTH EVERY MORNING documented in this encounter Plan of Treatment Upcoming Encounters Date Type Department Care Team ( st Contact Info) Description 06/14/2024 12:30 PM EST Imaging Radiology [facility]st [facility], [place] [address] [place] [address] 09/27/2024 9:20 AM EDT Office Visit Family Practice [address], [place] [address] [place] [phone] Keerthi Phan DO [address] [facility] [address] Scheduled Procedures Name Priority Associated Diagnoses Date/Ti [...] Vaccine ( season) 2024 05/15/2021, 11/23/2020, 11/02/2020 Mammogram 06/11/2024 06/11/2023, 05/17, 06/02/2023, Additional history exists Depression Monitoring 05/24/2025 05/24/2024 GFR 05/24/2025 05/24/2024, 12/0 09/2022, 10/18/2022, Additional history exists HbA1c 05/24/2025 05/24/2024, 12/0 09/2022, 04/23/2022, Additional history exists Colonoscopy 12/05/2026 [...] Not on filedocumented as of this encounter Visit Diagnoses Diagnosis Dyslipidemia Other and unspecified hyperlipidemia Moderate major depression (HCC) Major depressive disorder, single episode, moderate documented in this encounter Care Teams Cruller Maker Machine Relationship Specialty Start Date End Date Keerthi Phan DO [address] [facility] [place] [place] [address] PCP - General Family Medicine 01/24/24 documented as of this encounter
--- OUTSIDE RECORDS SUMMARY | 2024-08-03 06:51 | External Medical Summary ---
Author Name Unknown Address Unknown Organization K01:[facility] [place] [address] [place] [address] Laboratory Report Ordering Provider Test Date Status JOSEEMILIE 05/24/2024 10:44:53 Final Observation Date Value Abnormality Reference (Units ) Status TSH 05/24/2024 10:44:53 1.44 0.27-4.20 (uIU/mL) Final Performing Location [facility] [place] [address] [place] [address]
--- OUTSIDE RECORDS SUMMARY | 2024-08-03 06:51 | External Medical Summary ---
Author Name Unknown Address Unknown Organization K01:[facility]ATORY [facility] - [address] [place] [address] Laboratory Report Ordering Provider Test Date Status KING CANALES 05/24/2024 10:44:53 Final Observation Date Value Abnormality Reference (Units ) Status Vitamin B12 05/24/2024 10:44:53 1862 Above high normal 232-1245 (pg/mL) Final Performing Location [facility] - [address] [place] [address]
--- OUTSIDE RECORDS SUMMARY | 2024-08-03 06:51 | External Medical Summary | Summary of Care ---
Author Name Unknown Organization [facility] Address [address] [place] [address] Phone [phone] Care Team Providers Care Contractor [employer] Threshing Name Role Phone Keerthi Zuluaga DO Primary Care Provider [phone] Reason for Visit * Reason Comments Follow Up Encounter Details Date Type Department Care Team (Latest Contact Info) Description 05/24/2024 10:00 AM EST Office Visit Family Practice [address], [place] [address] [place] [address] Keerthi Zuluaga DO [address] [place] [address] Lower abdominal pain*; Dysfunction of both eustachian tubes; Hair loss; Nausea; Lichen sclerosus; Prediabetes; Hyperlipidemia, unspecified hyperlipidemia type; Encounter for long-term (current) use of medications Allergies Active Allergy Reactions Criticality Noted Date Comments Pollen Other (Please comment) 10/30/2021 Sinus symptoms, blocked ears Ragweed Other (Please comment) 10/30/2021 Sinus symptoms, blocked ears documented as of this encounter (statuses as of 05/24/2024) Medications B-12-SL 1000 MCG Sublingual Tablet Sublingual [...] BY MOUTH TWICE A DAY. 360 Tablet 4 05/22/20 25 Active Clobetasol Propionate 0.05 % External Ointment (Temovate)Indic ations:Lichen sclerosus APPLY FINGERTIP SIZED AMOUNT ALL OVER VULVA ONCE DAILY FOR FOUR WEEKS, THEN EVERY OTHER DAY FOR FOUR WEEKS, THEN FOR TWO DAYS A WEEK 60 g 3 4 Active Ondansetron HCl 4 MG Oral TabletIndicatio ns:Nausea Take 1 Tablet by mouth every 8 hours as needed for Nausea. 45 Tablet 4 Active Clobetasol Propionate 0.05 % External Ointment [...] as of this encounter (statuses as of 05/24/2024) Active Problems Problem Noted Date Diagnosed Date [...] as of this encounter (statuses as of 05/24/2024) Immunizations Name Administration Dates Next Due COVID-19 mRNA, LNP-s, No Pre serve, 2-Dose Series ([employer]) 05/15/2021,11/23/2020,11/02/2020 PPD 03/25/2018 Seasonal Influenza, High Dos [...] Passive Smoke Exposure: Past Smokeless Tobacco: Never Tobacco Cessation:Counseling Given: Yes Alcohol Use Standard Drinks/Week Comments No 0 [...] AM EDT documented as of this encounter Last Filed Vital Signs Vital Sign Reading Time Taken Comments Blood Pressure 108/64 05/24/2024 10:12 AM EST Pulse 74 05/24/2024 10:12 AM EST Temperature 36.8 C (98.3 F) 05/24/2024 10:[address] Respiratory Rate 14 05/24/2024 10:12 AM EST Oxygen Saturation 98% 05/24/2024 10:12 AM EST Inhaled Oxygen Concentration - - Weight 68.1 kg (150 lb 3.2 oz) 05/24/2024 10:12 AM EST Height 165.7 cm (5' 5.25") 05/24/2024 10:[address] Body Mass Index 24.8 05/24/2024 10:12 AM EST documented in this encounter Progress Notes * Keerthi Zuluaga, - 05/24/2024 10:17 AM EST SUBJECTIVE: Chief Complaint Patient presents with Follow Up HPI: Bettina Myrick is a 68 year old female who presents today for regular return. Pt notes that she had some lower abdominal pain about a month ago. She notes that it awakened her at night. It lasted several days. She only had one episode since then. No constipation. She had no other symptoms with it. Has no pain now. Pt notes that she is getting a lot of hair thinning. She was using an OTC biotin for it. She has been using it for 6 months. It has not made much difference for her. PHM: Patient Active Problem List Diagnosis Sciatica Displacement of lumbar intervertebral disc without myelopathy Reflux esophagitis HYPERTENSION NOS Moderate major depression (HCC) HTN, goal below 130/80 Prediabetes Moderate episode of recurrent major depressive disorder (HCC) Lichen sclerosus H/O colonoscopy with polypectomy Hyperlipidemia Current Outpatient Medications Medication Sig Dispense Refill B-12-SL 1000 MCG Sublingual Tablet Sublingual (Cyanocobalamin) Place 1,000 mcg under the tongue daily. 90 Tab 1 Loratadine 10 MG Oral Capsule Take 1 Capsule by mouth in the morning. Omeprazole 20 MG Oral Capsule Delayed Release (PriLOSEC) TAKE 1 CAPSULE BY MOUTH 1 HOUR PRIOR TO THE FIRST MEAL OF THE DAY 100 Capsule 3 Rosuvastatin Calcium 20 MG Oral Tablet (Crestor) TAKE ONE TABLET BY MOUTH EVERY DAY. 100 Tablet 2 Losartan Potassium 50 MG Oral Tablet (Cozaar) TAKE ONE TABLET BY MOUTH IN THE MORNING. 100 Tablet 2 hydroCHLOROthiazide 12.5 MG Oral Capsule TAKE ONE CAPSULE BY MOUTH IN THE MORNING. 100 Capsule 2 FLUoxetine HCl 40 MG Oral Capsule (PROzac) TAKE ONE CAPSULE BY MOUTH EVERY MORNING 100 Capsule 2 Clobetasol Propionate 0.05 % External Ointment (Temovate) APPLY FINGERTIP SIZED AMOUNT ALL OVER VULVA ONCE DAILY FOR FOUR WEEKS, THEN EVERY OTHER DAY FOR FOUR WEEKS, THEN FOR TWO DAYS A WEEK 60 g 3 Ondansetron HCl 4 MG Oral Tablet Take 1 Tablet by mouth every 8 hours as needed for Nausea. 45 Tablet 0 Metoprolol Tartrate 50 MG Oral Tablet (Lopressor) TAKE ONE TABLET BY MOUTH IN THE MORNING AND ONE TABLET BEFORE BEDTIME 180 Tablet 3 metFORMIN HCl ER 500 MG Oral Tablet Extended Release 24 Hour (Glucophage XR) TAKE TWO TABLETS BY MOUTH TWICE A DAY. 360 Tablet 0 No current facility-administered medications for this visit. Past Medical History: Diagnosis Date Depression Diabetes type 2, controlled (HCC) GERD (gastroesophageal reflux disease) Hyperlipidemia Hypertension Lichen sclerosus 04/09/2021 Lumbar herniated disc Past Surgical History: Procedure Laterality Date COLONOSCOPY, DIAGNOSTIC (RECTUM) 08/29/2017 serrated adenomatous polyps, repeat 1 yr/COLONOSCOPY FLEXIBLE PROXIMAL DIAGNOSTIC performed by Samantha Tan MD at [facility] COLONOSCOPY, DIAGNOSTIC (RECTUM) 08/28/2018 normal bx, repeat 3 yrs/COLONOSCOPY FLEXIBLE PROXIMAL DIAGNOSTIC performed by Lyndsay Vieira [facility] COLONOSCOPY, DIAGNOSTIC (RECTUM) 12/05/2021 mild acute inflammation, repeat 5 yrs / COLONOSCOPY FLEXIBLE PROXIMAL DIAGNOSTIC performed by Samantha Tan MD at [facility] DILATION AND CURETTAGE (D&C) Uterine polyp LIGATE/CUT OVIDUCT(S) 1980s PUNCTURE DRAINAGE BREAST CYST Bilateral benign REMOVE TONSILS & ADENOIDS, UNDER 12 Review of patient's allergies indicates: Allergen Reactions Pollen Other (Please comment) Sinus symptoms, blocked ears Ragweed Other (Please comment) Sinus symptoms, blocked ears Family History Problem Relation Name Age of Onset Rectal cancer Mother Heart attack Mother Other (Dyslipidemia) Mother Lung cancer Father Smoker Hypertension Father Other (Dyslipidemia) Father Other (Brain Tumor) Sister Benign Other (Dyslipidemia) Sister Diabetes Brother Hypertension Brother Liver cancer Grandmother (Maternal) ?colon as primary site Heart attack Grandfather (Maternal) Breast Cancer No significant family history Family Status Relation Status Mo (Not Specified) Fa (Not Specified) Sis (Not Specified) Bro (Not Specified) MGMA (Not Specified) MGFA (Not Specified) No history (Not Specified) Social History Tobacco Use Smoking status: Never Passive exposure: Past Smokeless tobacco: Never Substance Use Topics Alcohol use: No Vaping/E-Cigarette Use Vaping/E-Cigarette Use Never User Vaping/E-Cigarette Substances Vaping/E-Cigarette Devices REVIEW OF SYSTEMS: Review of Systems Constitutional: Negative for chills, fatigue, fever and unexpected weight change. Respiratory: Negative for cough, chest tightness, shortness of breath and wheezing. Cardiovascular: Negative for chest pain, palpitations and leg swelling. Gastrointestinal: Positive for abdominal pain. Negative for constipation, diarrhea, nausea and vomiting. Musculoskeletal: Negative for arthralgias, gait problem and joint swelling. Skin: Negative for color change, pallor and rash. As per HPI OBJECTIVE: BP 108/64 (BP Site: Left Arm, BP Position: Sitting, BP Cuff Size: Regular) | Pulse 74 | Temp 98.3 F (36.8 C) (Tympanic) | Resp 14 | Ht 5' 5.25" (1.657 m) | Wt 150 lb 3.2 oz (68.1 kg) | SpO2 98% |BMI 24.80 kg/m | BSA 1.77 m PHYSICAL EXAM: Physical Exam Constitutional: General: She is not in acute distress. Appearance: She is well-developed. Cardiovascular: Rate and Rhythm: Normal rate and regular rhythm. Heart sounds: Normal heart sounds. No murmur heard. No friction rub. No gallop. Pulmonary: Effort: Pulmonary effort is normal. No respiratory distress. Breath sounds: Normal breath sounds. No wheezing or rales. Abdominal: General: Bowel sounds are normal. There is no distension. Palpations: Abdomen is soft. Tenderness: There is no abdominal tenderness. There is no guarding. Musculoskeletal: General: No tenderness or deformity. Normal range of motion. Skin: General: Skin is warm and dry. Coloration: Skin is not pale. Findings: No erythema or rash. Neurological: Mental Status: She is alert and oriented to person, place, and time. ASSESSMENT/PLAN: (R10.30) Lower abdominal pain (primary encounter diagnosis) Plan: pt with lower abdominal pain. Advised CT. She declines. She is advised to call with any worsening. (H69.93) Dysfunction of both eustachian tubes Plan: Ears actually look pretty good today. Can continue with flonase. She did feel that antihistamine made a difference so did advise that she restart this. Offered ENT. She presently declines. (L65.9) Hair loss Plan: TSH WITH FREE T4 IF INDICATED, TSH WITH FREE T4 IF INDICATED Will check TSH. Does appear to have some new growth hair. To continue biotin. (R11.0) Nausea Plan: Ondansetron HCl 4 MG Oral Tablet Refill sent. (L90.0) Lichen sclerosus Plan: Clobetasol Propionate 0.05 % External Ointment (Temovate) Refill sent. (R73.03) Prediabetes Plan: BASIC METABOLIC PANEL, HEMOGLOBIN A1C, ALBUMIN / CREATININE RATIO, URINE Pt will complete lab studies. (E78.5) Hyperlipidemia, unspecified hyperlipidemia type Plan: LIPID PANEL WITH DIRECT LDL IF TG IS HIGH Pt will complete lab studies. Will await resutls. (Z79.899) Encounter for long-term (current) use of medications Plan: VITAMIN B12 B12 today. Follow-up: 3-4 months Total time today including reviewing chart before the visit, pertinent labs, imaging reports, face to face time, and documentation time was 32 minutes. Keerthi Zuluaga DO documented in this encounter Nursing Notes * Ladonna Campuzano LPN - 05/24/2024 10:09 AM EST Patient here for routine follow up visit. Reports intermittent lower abdominal pain. documented in this encounter Plan of Treatment Upcoming Encounters Date Type Department Care Team (Late st Contact Info) Description 06/14/2024 12:30 PM EST Imaging Radiology [facility] 1st Floor, [place] [address] [place] [address] 09/27/2024 9:20 AM EDT Office Visit Family Practice [address], [place] [address] [place] [phone] [facility] [address] [facility] [address] Pending Results Name Type Priority Associated Diagnoses Date /Time TSH WITH FREE T4 IF INDICATED Lab Routine Hair loss 05/24/2024 10:44 AM EST BASIC METABOLIC PANEL Lab Routine Prediabetes 05/24/2024 10:44 AM EST HEMOGLOBIN A1C Lab Routine Prediabetes 05/24/2024 10:44 AM EST LIPID PANEL WITH DIRECT LDL IF TG IS HIGH Lab Routine Hyperlipidemia, unspecified hyperlipidemia type 05/24/2024 10:44 AM EST VITAMIN B12 Lab Routine Encounter for long-term (current) use of medications 05/24/2024 10:44 AM EST ALBUMIN / CREATININE RATIO, URINE Lab Routine Prediabetes 05/24/2024 10:48 AM EST Scheduled Orders Name Type Priority Associated Diagnoses Orde r Schedule TSH WITH FREE T4 IF INDICATED Lab Routine Hair loss Expected: 05/24/2024 (Approximate), Expires: 05/24/2025 Scheduled Procedures Name Priority Associated Diagnoses Date/Ti me COLONOSCOPY FLEXIBLE PROXIMAL DIAGNOSTIC Recall History of colon polyps Health Maintenance Due Date Last Done Comments Cologuard 10/16/2000 Fecal Occult Blood Test 10/16/2000 Sigmoidoscopy 10/16/2000 Adult Wellness Visit 01/28/2024 01/27/2023 GFR 05/19/2024 05/19/2023, 10/2022, 04/23/2022, Additional history exists HbA1c 05/19/2024 05/19/2023, 01/2022, 01/05/2021, Additional history exists COVID-19 Vaccine ( season) 2024 05/15/2021, 11/23/2020, [...] Additional history exists Depression Monitoring 05/24/2025 05/24/2024 Albumin/Creatinine Ratio 05/19/2026 023, 04/29/2022, 12/24/2016 Colonoscopy 12/05/2026 12/05/2021, 11/15, 08/28/2018, Additional history exists Colorectal Cancer Screening 12/05/2026 DXA Scan 05/08/2028 05/08/2021, 05/08/2021 Lipid Panel 05/19/2028 05/19/2023, 01/2022, 01/05/2021, Additional history exists Pap Smear Discontinued 05/17/2020, [...] as of this encounter Visit Diagnoses Diagnosis Lower abdominal pain- Primary Abdominal pain, other specified site Dysfunction of both eustachian tubes Dysfunction of Eustachian tube Hair loss Alopecia, unspecified Nausea Nausea alone Lichen sclerosus Circumscribed scleroderma Prediabetes Other abnormal glucose Hyperlipidemia, unspecified hyperlipidemia type Encounter for long-term (current) use of medications Encounter for long-term (current) use of other medications documented in this encounter Care Teams Contractor [employer] Threshing Relationship Specialty Start Date End Date Keerthi Zuluaga DO [address] [place] [address] PCP - General Family Medicine 01/24/24 documented as of this encounter
--- OUTSIDE RECORDS SUMMARY | 2024-08-03 06:51 | External Medical Summary | Summary of Care ---
Author Name Unknown Organization [facility] Address [address] [place] [address] Phone [phone] Care Team Providers Care Fulfillment Representative Name Role Phone MargarethKeerthi Kristopher DORAN Primary Care Provider [phone] Reason for Visit * Reason Onset Date Comments Test Results Lab 05/25/2024 Encounter Details Date Type Department Care Team (Late st Contact Info) Description 05/25/2024 Telephone Family Practice [address] [facility], [place] [address] [place] [phone] Sharonda Myrick, [facility] [address] [place] [address] Test Results Lab Allergies Active Allergy Reactions Criticality Noted Date Comments Pollen Other (Please comment) 10/30/2021 Sinus symptoms, blocked ears Ragweed Other (Please comment) 10/30/2021 Sinus symptoms, blocked ears documented as of this encounter (statuses as of 05/26/2024) Medications B-12-SL 1000 MCG Sublingual Tablet Sublingual [...] 8:53 AM EDT 4 08/22/19 25 Active hydroCHLOROthiaz salbador 12.5 MG Oral [...] Tablet 05/24/2024 6:33 PM EST 4 Active documented as of this encounter (statuses as of 05/26/2024) Active Problems Problem Noted Date Diagnosed Date [...] as of this encounter (statuses as of 05/26/2024) Immunizations Name Administration Dates Next Due COVID-19 mRNA, LNP-s, No Pre serve, 2-Dose Series ([employer]) 05/15/2021,11/23/2020,11/02/2020 PPD 03/25/2018 Seasonal Influenza, High Dos [...] encounter Miscellaneous Notes * Telephone Encounter - Keerthi Zuluaga DO - 05/26/2024 3:45 PM EST Pt already treated with metformin. * Telephone Encounter - Sharonda Myrick RPh - 05/25/2024 6:26 AM EST A1C just within diabetic range. Please advise if you wish to start medication at this time or have patient focus on diet. Hemoglobin AIC Results: Lab Results Component Value Date/Time HEMOGLOBIN A1C - [facility] 6.5 (H) 05/24/2024 10:44 AM HEMOGLOBIN A1C - [facility] 6.1 (H) 05/19/2023 09:52 AM HEMOGLOBIN A1C - [facility] 6.2 (H) 04/23/2022 07:53 AM HEMOGLOBIN A1C - [facility] 6.2 (H) 06/11/2018 07:44 AM HEMOGLOBIN A1C - [facility] 7.0 (H) 08/19/2017 09:16 AM Sharonda Henriquez Clinical Pharmacist [facility] [phone] 05/25/2024, 6:26 AM documented in this encounter Plan of Treatment Upcoming Encounters Date Type Department Care Team (Late st Contact Info) Description 06/14/2024 12:30 PM EST Imaging Radiology [facility] [facility], [place] [address] [facility] [place] [address] 09/27/2024 9:20 AM EDT Office Visit Family Practice [address], [place] [address] [place] [address] Keerthi Zuluaga DO [address] [facility] [address] Scheduled Procedures Name Priority Associated Diagnoses Date/Ti me COLONOSCOPY FLEXIBLE PROXIMAL DIAGNOSTIC Recall History of colon polyps Health Maintenance Due Date Last Done Comments DTap/Tdap Vaccines (1 - Tdap) 10/16/1974 Cologuard 10/16/2000 Fecal Occult Blood Test 10/16/2000 Sigmoidoscopy 10/16/2000 Zoster Vaccines (1 of 2) 10/16/2005 Pneumococcal Vaccine: 65+ Years (1 of 1 - PCV) 10/16/2020 Adult Wellness Visit 01/28/2024 01/27/2023 COVID-19 Vaccine [...] filedocumented as of this encounter Care Teams Fulfillment Representative Relationship Specialty Start Date End Date Keerthi Zuluaga DO [address] [facility] [place] [address] PCP - General Family Medicine 01/24/24 documented as of this encounter
--- OUTSIDE RECORDS SUMMARY | 2024-08-03 06:52 | External Medical Summary ---
Author Name Unknown Address Unknown Organization K01:[facility] [place] [address] [facility] [address] Laboratory Report Ordering Provider Test Date Status KING CANALES 05/24/2024 10:44:53 Final Observation Date Value Abnormality Reference (Units ) Status Triglyceride 05/24/2024 10:44:53 113 <=174 ( mg/dL) Final Triglyceride Reference Range s (mg/dL):
<150 Acceptable
150-174 Borderline high
175-499 High
>=500 Very high Cholesterol 05/24/2024 10:44:53 133 <200 (mg /dL) Final Total Cholesterol Reference Ranges (mg/dL):
<200 Desirable
200-239 Borderline high
>=240 High HDL 05/24/2024 10:44:53 53 >49 (mg/dL ) Final HDL Cholesterol Reference Ra nges (mg/dL):
>=60 High (Desirable)
<50 Low (Undesirable) For Females
<40 Low (Undesirable) For Males NON-HDL CHOLESTEROL 05/24/2024 10:44:53 80 <=159 (mg/dL) Final Non-HDL Cholesterol Referenc e Range (mg/dL):
<100 Target level for high risk ASCVD patient
<130 Optimal for general population
130-159 Near optimal for general population
160-189 Borderline High
190-219 High
>=220 Very High LDL, (calculated) 05/24/2024 10:44:53 57 <= 129 (mg/dL) Final LDL Cholesterol Reference Ra nges (mg/dL):
<70 Target level for high risk ASCVD patient
<100 Optimal for general population
100-129 Near optimal for general population
130-159 Borderline high
160-189 High
>=190 Very high Performing Location [facility] [place] [address] [facility] [address]
--- OUTSIDE RECORDS SUMMARY | 2024-08-03 06:52 | External Medical Summary | Summary of Care ---
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 Name Role Phone MargarethDeirdreruthie Summers DO Primary Care Provider Encounter Details Date Type Department Care Team (Late st Contact Info) Description 04/26/2024 9:50 AM EST Immunization Ancillary [facility] [address] [place] [address] [place] [address] [address] Arrived Allergies Active Allergy Reactions Criticality Noted Date Comments Pollen Other (Please comment) 10/30/2021 Sinus symptoms, blocked ears Ragweed Other (Please comment) 10/30/2021 Sinus symptoms, blocked ears documented as of this encounter (statuses as of 04/26/2024) Medications B-12-SL 1000 MCG Sublingual Tablet Sublingual (Cyanocobalamin) Indications:Pare sthesias Place 1,000 mcg under the tongue daily. 90 Tab 1 0 Active Loratadine 10 MG Oral Capsule Take 1 Capsule by mouth in the morning. Active metFORMIN HCl ER 500 MG Oral Tablet Extended Release 24 Hour (Glucophage XR)Indications:P rediabetes TAKE TWO TABLETS BY MOUTH TWICE A DAY. 360 Tablet 3 02/23/2024 12:56 PM EDT 3 05/30/20 24 Active Omeprazole 20 MG Oral Capsule Delayed [...] 8:53 AM EDT 4 08/22/19 25 Active Clobetasol Propionate 0.05 % External Ointment (Temovate)Indica tions:Lichen sclerosus APPLY FINGERTIP SIZED AMOUNT ALL OVER VULVA ONCE DAILY FOR FOUR WEEKS, THEN EVERY OTHER DAY FOR FOUR WEEKS, THEN FOR TWO DAYS A WEEK 60 g 3 09/24/2023 12:49 PM EDT 4 Active Ondansetron HCl 4 MG Oral Tablet Take 1 Tablet by mouth every 8 hours as needed for Nausea. 45 Tablet 09/24/2023 12:49 PM EDT 4 Active Metoprolol Tartrate 50 MG Oral Tablet (Lopressor)Indic ations:HTN, goal below 130/80 TAKE ONE TABLET BY MOUTH IN THE MORNING AND ONE TABLET BEFORE BEDTIME 180 Tablet 3 04/12/2024 6:22 PM EDT 4 10/16/19 25 Active documented as of this encounter (statuses as of 04/26/2024) Active Problems Problem Noted Date Diagnosed Date [...] as of this encounter (statuses as of 04/26/2024) Immunizations Name Administration Dates Next Due COVID-19 mRNA, LNP-s, No Pre serve, 2-Dose Series (ToutApp) 05/15/2021,11/23/2020,11/02/2020 PPD 03/25/2018 Seasonal Influenza, High Dos [...] Date Recorded PHQ Adult Total Score 0 05/18/2023 Hunger Vital Sign Answer Date Recorded Within the past 12 months, y ou worried that your food would run out before you got the money to buy more. Never true 05/18/20 23 Within the past 12 months, t he food you bought just didn't last and you didn't have money to get more. Never true 05/18/2023 Childcare Answer Date Recorded Do you feel overwhelmed with taking care of a child, family member or friend? No 05/18/2023 Does your family need help f inding childcare? (Household - for ages 0-17 years) Not on file 05/18/2023 Clothing Answer Date Recorded Have you been unable to get clothing when it was really needed? No 05/18/2023 Is your family able to get c lothes or diapers when needed? (Household - for ages 0-17 years) Not on file 05/18/2023 Personal Safety Answer Date Recorded Do you feel unsafe or have concerns for your saf ety? No 05/18/2023 Do you have concerns for you r family's safety? (Household - for ages 0-17 years) Not on file 05/18/2023 Utilities Answer Date Recorded Do you have trouble paying y our heating, water, or electric bill? No 05/18/2023 Is your family able to pay t he heat, water, or electric bill? (Household - for ages 0-17 years) Not on file 05/18/2023 Does your family have access to good internet? (Household - for ages 0-17 years) Not on file 05/18/2023 Employment Status Answer Date Recorded Are you unemployed or without regular income? No 05/18/2023 Does the household have a [facility] source [facility] income? (Household - for ages 0-17 years) Not on file 05/18/2023 Social Connections Answer Date Recorded How often do you feel lonely or isolated from th ose around you? Rarely 05/18/2023 Financial Resource Strain Answer Date R ecorded Do you have any trouble payi ng for your medications, or do you think you might in the future? No 05/18/2023 Does your family have troubl e paying for medicine? (Household - for ages 0-17 years) Not on file 05/18/2023 Transportation Needs Answer Date Record ed READ ONLY Do you have troubl e getting a ride to medical visits or work? Never True 05/18/2023 Does your family have a hard time getting a ride to doctors visits? (Household - for ages 0-17 years) Not on file 05/18/2023 Has lack of transportation k ept you from medical appointments, meetings, work, or from getting things needed for daily living? Check all that apply. (Adult - for ages 18 years and over) Not on file 05/18/2023 Do you (or your family) have trouble finding or paying for a ride (transportation)? (Household - for ages 0-17 years) Not on file 05/18/2023 Housing Stability Answer Date Recorded Do you currently live in a s helter or have no steady place to sleep at night? No 05/18/2023 READ ONLY Do you think you a re at risk of becoming homeless? No 05/18/2023 Does your family worry about paying for your home or becoming homeless? (Household - for ages 0-17 years) Not on file 1 07/19/2022 Are you homeless or worried that you might be in the future? (Adult - for ages 18 years and over) Not on file Are you (or your family) arlet eless or worried that you might be in the future? (Household - for ages 0-17 years) Not on file Food Insecurity Answer Date Recorded Do you need food for this week? No 05/18/2023 Are you able to get enough f ood for your family? (Household - for ages 0-17 years) Not on file 05/18/2023 Does your family need food t his week? (Household - for ages 0-17 years) Not on file 05/18/2023 Do you always have enough fo od for your family? (Household - for ages 0-17 years) Not on file 05/18/2023 Comments No Sex and Gender Information Value Date Recorded Sex Assigned at Female 01/27/2023 10:12 AM EDT Legal Sex Female 5:30 AM EST Gender Identity Female 01/27/2023 10:12 AM EDT Sexual Orientation Straight 01/27/2023 10 :12 AM EDT documented as of this encounter Plan of Treatment Upcoming Encounters Date Type Department Care Team (Late st Contact Info) Description 05/24/2024 1:00 PM EST Office Visit Family Practice [address], [place] [address] [place] [address] Keerthi Zuluaga, DO [address] [facility], [place] [address] 06/14/2024 12:30 PM EST Imaging Radiology [address], [place] [address] [facility] [place] [address] Scheduled Procedures Name Priority Associated Diagnoses Date/Ti [...] ( - season) 2024 05/15/2021, 11/23/2020, 11/02/2020 Influenza Vaccine (FLU shot) (#1) 2024 04/26/2024, 05/19/2023, 04/29/2022, Additional history exists Depression Monitoring 05/18/2024 05/18/2023 GFR 05/19/2024 05/19/2023, 10/2022, 04/23/2022, Additional history exists HbA1c 05/19/2024 05/19/2023, 01/2022, 01/05/2021, Additional history exists Mammogram 06/11/2024 06/11/2023, 05/17, 06/02/2023, Additional history exists Albumin/Creatinine Ratio 05/19/2026 023, 04/29/2022, 12/24/2016 Colonoscopy 12/05/2026 12/05/2021, 11/15, 08/28/2018, Additional history exists Colorectal Cancer Screening 12/05/2026 DXA Scan 05/08/2028 05/08/2021, 05/08/2021 Lipid Panel 05/19/2028 05/19/2023, 01/2022, 01/05/2021, Additional history exists Pap Smear Discontinued 05/17/2020, 10/2015, 12/14/2014 (Done elsewhere) RETIRED - COLONOSCOPY-EVERY 5 YRS AGES 18-100 Discontinued 12/05/2021, 12/05/2021, 08/28/2018, Additional history exists HPV (Gardasil) Vaccine Aged [...] filedocumented as of this encounter Care Teams Felting Machine Operator Helper Relationship Specialty Start Date End Date Keerthi Zuluaga DO [address] [place] [address] PCP - General Family Medicine 01/24/24 documented as of this encounter
--- NOTE | 2024-08-03 07:10 | Emergency Department Note ---
Impression & Plan Lumbar herniated disc, Ambulatory dysfunction, Left leg numbness ED Provider Note HISTORY OF PRESENT ILLNESS: Patient is a 68-year-old female presenting with low back pain and left leg numbness. Patient reports that she has been having low back pain and numbness of her left leg for the last 4 days. Reports that in the last 48 hours the symptoms of gotten progressively worse. She reports that 4 days ago she developed spontaneous numbness in her left leg from her knee down. States that she had stood up from the commode and "my left leg just gave out" and she fell to the ground, landing on her buttock. States that she has had left-sided low back pain and pain rating down her leg into her foot ever since. Denies any saddle anesthesia. Denies any bowel or bladder incontinence. Denies any fevers. Reports that she has tried Flexeril, Tylenol and tramadol with little relief in her symptoms. Reports that she cannot walk secondary to the pain in her back and left leg. Patient denies any chest pain, shortness of breath or lightheadedness prior to her fall. ROS: as above PHYSICAL EXAM: Constitutional: Patient appears in no acute distress. HENT: Head: Normocephalic and atraumatic. Eyes: EOMI, PERRL Mouth/Throat: Mucous membranes moist. Neck: Trachea midline. Neck supple. Back: No midline spinal tenderness, no paraspinal tenderness, no CVA tenderness. Patient is able to straight leg raise with her right leg, but is having difficulties initiating leg raise with the left leg. No clonus. Babinski downgoing bilaterally. Patient is able to dorsiflex and plantarflex the ankle. Sensation to light touch slightly decreased in the left lower leg, but intact in the left upper leg. Musculoskeletal: No edema, tenderness or deformity noted. Skin: Warm and dry. No rash, erythema, pallor or cyanosis Psychiatric: Appropriate mood and affect for situation. Neurological: Alert and keenly responsive. CN II-XII grossly intact. MDM: - Vitals signs showed hypertension - History obtained via patient. History as above. - Chronic conditions affecting care: HTN; HLD; sciatica; HLD - Differential diagnoses include, but are not limited to: contusion; herniated disc; compression fracture; cauda equina syndrome - Order placed for continuous cardiac monitoring. At this time, monitor showed rate of 85 bpm with normal sinus rhythm, per my interpretation. - External medical records reviewed. Primary care visit note dated 05/24/2024 was reviewed. Patient was seen for regular visit. She has a known history of displacement of lumbar intervertebral discs. - EKG image interpreted by myself showed normal sinus rhythm. Rate 84 bpm. QT 396. No acute ischemic changes. - Laboratory workup interpreted by myself showed normal WBC; stable electrolytes; normal TSH - CT lumbar spine wo contrast showed reduced disc space with diffuse disc bulge and posterior marginal osteophytes at the L5/S1 level causing mild spinal canal and bilateral neural foraminal stenosis. Noted have diffuse disc bulging of the lumbar spine. - Patient initially given lidocaine patch and 1g IV tylenol. On reassessment, the patient reports that pain has not improved at all. She was given 20 mg IV Pepcid, 125 mg IV Solu-Medrol and 4 mg IV morphine. - Discussed case with orthopedic spine surgeon, Dr. Gama, at 10:13. He recommends getting an MRI. Recommends that if the patient cannot ambulate, she should be admitted to the hospitalist service and should be given 24 to 48 hours of steroids and Lyrica if she can tolerate it as well as PT. Will follow as a consult service. If patient is not improving, surgical interventions could be discussed. - MRI lumbar spine wo contrast showed "normally demonstrated central disc protrusion at T12/L1 causing mild ventral effacement of the adjacent conus. New left lateral disc protrusion at L4/L5 causing significant foraminal stenosis." - On reassessment, the patient reports her pain initially was improved but after being moved back from MRI, the pain has returned. She is given additional 4 mg IV morphine. Discussed plans of care with the patient, including admission versus discharge. She initially wished to try to get her pain under control be discharged home. However, on reassessment after the second dose of morphine, the patient reports her pain is significant again and she feels too uncomfortable to attempt to ambulate. She reports that at home she been holding onto things to try to get around secondary to her left leg numbness. - Again discussed case with orthopedic spinal surgeon. He agreed with admission and plans for steroids and Lyrica dosing. Will see the patient as a consult inpatient - Discussion was had with case reviewer about patient's case and need for admission - Hospitalist consulted for admission - Patient admitted to [facility] service for further evaluation and management. ASSESSMENT AND PLAN: Diagnosis: lumbar disc herniation; ambulatory dysfunction; left leg numbness Plan: Admit Past Med/Surg History Problem List (Updated 08/03/24 @ 14:09 by Sharonda Boyd MD) Left leg numbness (Acute) Ambulatory dysfunction (Acute) Lumbar herniated disc (Acute) Diabetes (Chronic) Hyperlipidemia (Chronic) Influenza (Acute) Influenza (Acute) Needle stick injury of finger (Acute) Social History Smoking Status: Never smoker Preferred Language: Burkinan Feels Safe at Home: Yes Allergies Allergies Allergy/AdvReac Type Severity Reaction Status Date / Time No Known Allergies Allergy Unverified 04/21/10 12:52 Home Meds Home Medications Medication Instructions Recorded Confirmed metoprolol tartrate 50 mg tablet 50 mg PO BID ##0 04/21/10 08/03/24 [id number] 1 tab PO QAM ##0 07/18/13 08/03/24 (CALCIUM/MAGNESIUM/ZINC) omeprazole 20 mg capsule,delayed 20 mg PO DAILY #0 caps 07/18/13 08/03/24 release fluoxetine 40 mg capsule 40 mg PO DAILY 08/03/24 08/03/24 hydrochlorothiazide 12.5 mg capsule 12.5 mg PO DAILY 08/03/24 08/03/24 losartan 50 mg tablet 50 mg PO DAILY 08/03/24 08/03/24 metformin 500 mg tablet,extended 500 mg PO DIRECTED 08/03/24 08/03/24 release 24 hr ondansetron HCl 4 mg tablet 4 mg PO DIRECTED PRN N/V 08/03/24 08/03/24 rosuvastatin 20 mg tablet 20 mg PO DAILY 08/03/24 08/03/24 Results & Data (ED) Vital Signs Vital Signs - 24 hr 08/03/24 06:34 08/03/24 06:34 08/03/24 07:17 Temperature 36.6 C Temperature Source Oral Pulse Rate 85 95 H Pulse Rate [Apical] Pulse Rate from SpO2 Sensor Pulse Rhythm [Apical] Pulse Strength [Apical] Respiratory Rate 18 Respiratory Effort / Characteristics Respiratory Depth Respiratory Pattern Blood Pressure 163/118 H Blood Pressure [Right Arm] Blood Pressure Mean 133 Blood Pressure Mean [Right Arm] Blood Pressure Position [Right Arm] Pulse Oximetry 95 100 Oxygen Delivery Method Sepsis Recent Fever Within 48 Hours No Sepsis New/Unexplained Change in Mental Status N/A Sepsis Action Taken by Nursing No Action Required 08/03/24 07:52 08/03/24 08:03 08/03/24 08:36 Temperature Temperature Source Pulse Rate 79 76 79 Pulse Rate [Apical] Pulse Rate from SpO2 Sensor 76 77 Pulse Rhythm [Apical] Pulse Strength [Apical] Respiratory Rate 18 12 12 Respiratory Effort / Characteristics Respiratory Depth Respiratory Pattern Blood Pressure 145/98 H 144/91 H 143/92 H Blood Pressure [Right Arm] Blood Pressure Mean 115 108 109 Blood Pressure Mean [Right Arm] Blood Pressure Position [Right Arm] Pulse Oximetry 97 94 95 Oxygen Delivery Method Room Air Room Air Room Air Sepsis Recent Fever Within 48 Hours Sepsis New/Unexplained Change in Mental Status Sepsis Action Taken by Nursing 08/03/24 09:15 08/03/24 09:36 08/03/24 10:00 Temperature Temperature Source Pulse Rate 80 78 76 Pulse Rate [Apical] Pulse Rate from SpO2 Sensor 80 78 72 Pulse Rhythm [Apical] Pulse Strength [Apical] Respiratory Rate 12 14 12 Respiratory Effort / Characteristics Respiratory Depth Respiratory Pattern Blood Pressure 157/102 H 157/89 H 157/89 H Blood Pressure [Right Arm] Blood Pressure Mean 120 111 111 Blood Pressure Mean [Right Arm] Blood Pressure Position [Right Arm] Pulse Oximetry 96 98 95 Oxygen Delivery Method Room Air Room Air Room Air Sepsis Recent Fever Within 48 Hours Sepsis New/Unexplained Change in Mental Status Sepsis Action Taken by Nursing 08/03/24 10:33 08/03/24 11:08 08/03/24 11:30 Temperature Temperature Source Pulse Rate 82 76 77 Pulse Rate [Apical] Pulse Rate from SpO2 Sensor 79 78 Pulse Rhythm [Apical] Pulse Strength [Apical] Respiratory Rate 14 14 Respiratory Effort / Characteristics Respiratory Depth Respiratory Pattern Blood Pressure 147/100 H 146/92 H Blood Pressure [Right Arm] Blood Pressure Mean 115 110 Blood Pressure Mean [Right Arm] Blood Pressure Position [Right Arm] Pulse Oximetry 95 93 Oxygen Delivery Method Room Air Room Air Sepsis Recent Fever Within 48 Hours Sepsis New/Unexplained Change in Mental Status Sepsis Action Taken by Nursing 08/03/24 12:12 08/03/24 12:36 08/03/24 13:00 Temperature Temperature Source Pulse Rate 85 82 91 H Pulse Rate [Apical] Pulse Rate from SpO2 Sensor 84 82 90 Pulse Rhythm [Apical] Pulse Strength [Apical] Respiratory Rate 12 16 12 Respiratory Effort / Characteristics Respiratory Depth Respiratory Pattern Blood Pressure 153/101 H 156/85 H 170/99 H Blood Pressure [Right Arm] Blood Pressure Mean 118 108 122 Blood Pressure Mean [Right Arm] Blood Pressure Position [Right Arm] Pulse Oximetry 94 93 93 Oxygen Delivery Method Room Air Room Air Room Air Sepsis Recent Fever Within 48 Hours Sepsis New/Unexplained Change in Mental Status Sepsis Action Taken by Nursing 08/03/24 13:08 08/03/24 13:21 Temperature Temperature Source Pulse Rate 88 Pulse Rate [Apical] 85 Pulse Rate from SpO2 Sensor 89 Pulse Rhythm [Apical] Regular Pulse Strength [Apical] Normal Respiratory Rate 16 12 Respiratory Effort / Characteristics Non-Labored Spontaneous Respiratory Depth Normal Respiratory Pattern Regular Blood Pressure 163/104 H Blood Pressure [Right Arm] 170/99 H Blood Pressure Mean 123 Blood Pressure Mean [Right Arm] 122 Blood Pressure Position [Right Arm] Lying Pulse Oximetry 95 95 Oxygen Delivery Method Room Air Room Air Sepsis Recent Fever Within 48 Hours Sepsis New/Unexplained Change in Mental Status Sepsis Action Taken by Nursing Laboratory Data 08/03/24 06:52 08/03/24 06:52 Lab Results 08/03/24 Range/Units 06:52 WBC 8.08 (4.8-10.8) K/ul RBC 4.86 (4.20-5.40) M/uL Hgb 14.2 (12.0-16.0) g/dl Hct 43.6 (37.0-47.0) % MCV 89.7 (80.0-100.0) fL MCH 29.2 (25.0-34.0) pg MCHC 32.6 (32.0-36.0) g/dL RDW Std Deviation 39.0 (36.4-46.3) fL RDW Coeff of Augustin 11.9 (11.5-14.5) % Plt Count 249 (130-400) K/uL MPV 11.1 (9.4-12.4) fL Immature Gran % (Auto) 0.2 % Neut % (Auto) 61.8 % Lymph % (Auto) 25.2 % Harris % (Auto) 12.1 % Eos % (Auto) 0.5 % Baso % (Auto) 0.2 % Neut # (Auto) 4.98 (1.40-6.50) K/uL Lymph # (Auto) 2.04 (1.20-3.40) K/uL Harris # (Auto) 0.98 H (0.11-0.59) K/uL Eos # (Auto) 0.04 (0.00-0.50) K/uL Baso # (Auto) 0.02 (0.00-0.20) K/uL Immature Gran # (Auto) 0.02 (0.01-0.20) K/uL Sodium 135 L (136-145) mmol/L Potassium 3.6 (3.5-5.1) mmol/L Chloride 99 (98-107) mmol/L Carbon Dioxide 25 (21-32) mmol/L Anion Gap 11 (3-11) BUN 15 (6-23) mg/dl Creatinine 0.76 (0.6-1.2) mg/dl Est Cr Clr Drug Dosing 63.4 ml/min eGFR 85.30 BUN/Creatinine Ratio 19.7 (10-20) Glucose 144 H (70-99(Fasting)) mg/dl Calcium 9.9 (8.6-10.3) mg/dl Total Bilirubin 0.5 (0.2-1.0) mg/dl AST 23 (13-39) U/L ALT 24 (7-52) U/L Alkaline Phosphatase 69 (34-104) U/L Total Protein 7.5 (6.0-8.3) gm/dl Albumin 4.2 (3.4-5.0) gm/dl Globulin 3.3 (2.5-4.0) gm/dl Albumin/Globulin Ratio 1.3 (0.9-2) TSH 2.438 (0.300-4.500) uIu/ml Administered Medications Discontinued Medications Acetaminophen (Ofirmev) 1,000 mg in 100 mls @ 400 mls/hr IV NOW STA Stop: 08/03/24 07:20 Last Infusion: 08/03/24 07:53 Dose: Infused Documented By: Admin: 08/03/24 07:12 Dose: 400 mls/hr Documented By: ARNOLD Famotidine (Pepcid 20mg Iv Push) 20 mg in 5 mls @ 2.5 mls/min IV NOW STA Stop: 08/03/24 10:11 Last Admin: 08/03/24 10:26 Dose: 2.5 mls/min Documented By: [facility] [place] Lidocaine (Lidocaine 5% 1 Patch) 1 patch TD NOW STA Stop: 08/03/24 07:07 Last Admin: 08/03/24 07:12 Dose: 1 patch Documented By: [facility] [place] Methylprednisolone (Methylprednisolone 125 Mg/2 Ml Vial) 125 mg IV NOW STA Stop: 08/03/24 10:11 Last Admin: 08/03/24 10:26 Dose: 125 mg Documented By: [facility] [place] Morphine Sulfate (Morphine Sulfate 4 Mg/Ml 1 Ml Carp\\Vial) 4 mg IV NOW STA Stop: 08/03/24 10:11 Last Admin: 08/03/24 10:26 Dose: 4 mg Documented By: [facility] [place] Morphine Sulfate (Morphine Sulfate 4 Mg/Ml 1 Ml Carp\\Vial) 4 mg IV NOW STA Stop: 08/03/24 13:04 Last Admin: 08/03/24 13:07 Dose: 4 mg Documented By: [facility] [place] Imaging Data Radiologist's Impression: Lumbar Spine CT 08/03/24 07:06 EXAM: CT lumbar spine wo con CLINICAL HISTORY: Low back pain; L leg numbness. TECHNIQUE: A CT scan of the lumbar spine was performed without the administration of intravenous contrast. Contiguous axial images were obtained from the upper lumbar spine to the sacrum. Coronal and sagittal reformatted images were also reviewed. One of the following dose-reduction techniques was utilized for this exam. Automated exposure control, adjustment of the mA and/or kV according to patient size, and use of iterative reconstruction. DLP: 1136.6 mGy-cm, CTDI: 39.3 mGy. COMPARISON: No previous studies are available for comparison. FINDINGS: Vertebrae: Mild straightening of lumbar spine. Grade I retrolisthesis of L1 over L2 vertebra and L5 over S1. Marginal osteophytes in vertebrae. The vertebral bodies are normal in height. No evidence of acute fracture or dislocation. The cortical and trabecular bone patterns are normal. No signs of lytic or sclerotic lesions. Normal configuration of the posterior elements. Intervertebral Discs: Significant disc space narrowing and vacuum phenomenon at L1-L2, L5-S1 levels. Diffuse disc bulge and posterior marginal osteophytes causing mild spinal canal and bilateral neural foraminal stenosis. Diffuse disc bulge and posterior marginal osteophytes at L1-L2, L2-L3, L3-L4, L4-L5 levels causing mild bilateral neural foraminal stenosis. Facet Joints: Multilevel facet joints arthropathy. Paraspinal Soft Tissues: The paraspinal soft tissues are normal without evidence of mass or abnormal fluid collection. Bilateral mild perinephric stranding. Mild atherosclerotic vascular calcifications. IMPRESSION: 1. 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 2. Grade I retrolisthesis of L1 over L2 vertebra and L5 over S1. 3. Reduced disc space with diffuse disc bulge and posterior marginal osteophytes at L5-S1 level causing mild spinal canal and bilateral neural foraminal stenosis. 4. Diffuse disc bulge and posterior marginal osteophytes at L1-L2, L2-L3, L3-L4, L4-L5 levels causing mild bilateral neural foraminal stenosis. Electronically signed by Soni Bueno 08-03-2024 09:02 AM Lumbar Spine MRI 08/03/24 10:14 MR lumbar spine wo con CLINICAL HISTORY: low back pain; LLE numbness. COMPARISON: 10/10/2005 TECHNIQUE: Multiplanar, multi sequence MRI of the lumbar spine was performed without intravenous contrast. FINDINGS: The conus is within normal limits in size shape and location. No significant vertebral body lesions seen. No aortic aneurysm or periaortic adenopathy identified. There is mild bladder distention. There is a new central disc herniation at T12-L1 that was not evaluated axially. It causes mild, ventral effacement of the adjacent conus. There is progressive degenerative disc disease at L1-L2 with disc space narrowing and disc desiccation. There is a mild diffuse annular bulge with no significant neural compromise. L2-L3 level is unchanged and unremarkable. L3-L4 level demonstrates progressive desiccation of the disc with a slight annulus bulge with no significant neural compromise. L4-L5 level demonstrates newly demonstrated disc desiccation and a left lateral disc protrusion effacing the exiting nerve root within the foramen. L5-S1 level demonstrates disc desiccation with disc space narrowing and a left paracentral disc protrusion essentially unchanged since the prior examination. The left S1 nerve root appears to be compressed within the lateral recess. The right lateral recess is narrowed as well although slightly less pronounced. There is mild bilateral foraminal stenosis left greater than right. Hypertrophic facet arthropathy is noted at this level as well. IMPRESSION: Newly demonstrated a central disc protrusion at T12-L1 causing mild ventral effacement of the adjacent conus. Axial images were not performed. New left lateral disc protrusion at L4-5 causing significant foraminal stenosis. Persistent left paracentral disc protrusion at L5-S1 causing bilateral lateral recess stenosis and foraminal stenosis left greater than right. These findings are essentially unchanged when compared with the prior study. ACT 112: Negative or not required by law. The above report was generated using voice recognition software. It may contain grammatical, syntax or spelling errors. Electronically signed by: Jackelyn Martinez M.D. 08/03/2024 12:39 PM Discharge Plan Visit Data Chief Complaint: Fall Stated Complaint: FALL YESTERDAY ED Provider: Sharonda Boyd Discharge Problem: Lumbar herniated disc, Ambulatory dysfunction, Left leg numbness Forms Stand Alone Forms: [employer] Prescriptions Prescriptions: No Action metoprolol tartrate 50 mg Tablet 50 mg PO BID Qty: 0 omeprazole 20 mg Capsule,Delayed Release(Dr/Ec) 20 mg PO DAILY Qty: 0 [id number] (CALCIUM/MAGNESIUM/ZINC) 1 TAB tablet 1 tab PO QAM Qty: 0 Rx Instructions: otc unable to verify losartan 50 mg tablet 50 mg PO DAILY fluoxetine 40 mg capsule 40 mg PO DAILY ondansetron HCl 4 mg tablet 4 mg PO DIRECTED PRN (Reason: N/V) hydrochlorothiazide 12.5 mg capsule 12.5 mg PO DAILY metformin 500 mg tablet extended release 24 hr 500 mg PO DIRECTED rosuvastatin 20 mg tablet 20 mg PO DAILY Referrals Referrals: Keerthi Zuluaga DO [Primary Care Provider] -
[2024-08-03] MEDS: LIDOCAINE 5% 1 PATCH TD STA (07:12)
[2024-08-03] MEDS: ACETAMINOPHEN 1,000 MG/100 ML VIAL IV STA (07:12)
[2024-08-03 07:37] LABS: Basophils # (auto) 0.02 K/uL (0.00-0.20); Basophils % (auto) 0.2 %; Eosinophils # (auto) 0.04 K/uL (0.00-0.50); Eosinophils % (auto) 0.5 %; Hematocrit (blood only) 43.6 % (37.0-47.0); Hemoglobin 14.2 g/dl (12.0-16.0); Immature Granulocytes # (auto) 0.02 K/uL (0.01-0.20); Immature Granulocytes % (auto) 0.2 %; Lymphocytes # (auto) 2.04 K/uL (1.20-3.40); Lymphocytes % (auto) 25.2 %; Mean Corpuscular Hemoglobin 29.2 pg (25.0-34.0); Mean Corpuscular Hgb Conc 32.6 g/dL (32.0-36.0); Mean Corpuscular Volume 89.7 fL (80.0-100.0); Mean Platelet Volume 11.1 fL (9.4-12.4); Monocytes # (auto) 0.98 K/uL (0.11-0.59); Monocytes % (auto) 12.1 %; Neutrophils # (auto) 4.98 K/uL (1.40-6.50); Neutrophils % (auto) 61.8 %; Platelet Count 249 K/uL (130-400); RDW Coefficient of Variation 11.9 % (11.5-14.5); Red Blood Count 4.86 M/uL (4.20-5.40); White Blood Count 8.08 K/ul (4.8-10.8)
[2024-08-03 07:49] LABS: Albumin Globulin Ratio 1.3 (0.9-2); Albumin Level 4.2 gm/dl (3.4-5.0); BUN Creatinine Ratio 19.7 (10-20); Bilirubin,Total 0.5 mg/dl (0.2-1.0); Calcium 9.9 mg/dl (8.6-10.3); Creatinine Clr Calc Pharmacy 63.4 ml/min; Globulin 3.3 gm/dl (2.5-4.0); Potassium 3.6 mmol/L (3.5-5.1); Total Protein 7.5 gm/dl (6.0-8.3)
[2024-08-03 08:03] LABS: Thyroid Stimulating Hormone 2.438 uIu/ml (0.300-4.500)
--- NOTE | 2024-08-03 09:03 | CT Scan Report ---
EXAM: CT lumbar spine wo con CLINICAL HISTORY: Low back pain; L leg numbness. TECHNIQUE: A CT scan of the lumbar spine was performed without the administration of intravenous contrast. Contiguous axial images were obtained from the upper lumbar spine to the sacrum. Coronal and sagittal reformatted images were also reviewed. One of the following dose-reduction techniques was utilized for this exam. Automated exposure control, adjustment of the mA and/or kV according to patient size, and use of iterative reconstruction. DLP: 1136.6 mGy-cm, CTDI: 39.3 mGy. COMPARISON: No previous studies are available for comparison. FINDINGS: Vertebrae: Mild straightening of lumbar spine. Grade I retrolisthesis of L1 over L2 vertebra and L5 over S1. Marginal osteophytes in vertebrae. The vertebral bodies are normal in height. No evidence of acute fracture or dislocation. The cortical and trabecular bone patterns are normal. No signs of lytic or sclerotic lesions. Normal configuration of the posterior elements. Intervertebral Discs: Significant disc space narrowing and vacuum phenomenon at L1-L2, L5-S1 levels. Diffuse disc bulge and posterior marginal osteophytes causing mild spinal canal and bilateral neural foraminal stenosis. Diffuse disc bulge and posterior marginal osteophytes at L1-L2, L2-L3, L3-L4, L4-L5 levels causing mild bilateral neural foraminal stenosis. Facet Joints: Multilevel facet joints arthropathy. Paraspinal Soft Tissues: The paraspinal soft tissues are normal without evidence of mass or abnormal fluid collection. Bilateral mild perinephric stranding. Mild atherosclerotic vascular calcifications. IMPRESSION: 1. 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 2. Grade I retrolisthesis of L1 over L2 vertebra and L5 over S1. 3. Reduced disc space with diffuse disc bulge and posterior marginal osteophytes at L5-S1 level causing mild spinal canal and bilateral neural foraminal stenosis. 4. Diffuse disc bulge and posterior marginal osteophytes at L1-L2, L2-L3, L3-L4, L4-L5 levels causing mild bilateral neural foraminal stenosis. Electronically signed by Soni Bueno 08-03-2024 09:02 AM
[2024-08-03] MEDS: methylPREDNISolone 125 MG/2 ML VIAL IV STA (10:26)
[2024-08-03] MEDS: MoRPHine SULFATE 4 MG/ML 1 ML CARP\\VIAL IV STA ×2 (10:26→13:07)
[2024-08-03] MEDS: FAMOTIDINE 20MG IV PUSH 20 MG/5 ML SYR IV STA (10:26)
--- NOTE | 2024-08-03 10:33 | Electrocardiogram Report ---
Test Reason : Blood Pressure : */* mmHG Vent. Rate : 84 BPM Atrial Rate : 84 BPM P-R Int : 148 ms QRS Dur : 78 ms QT Int : 396 ms P-R-T Axes : 42 45 31 degrees QTcB Int : 467 ms Normal sinus rhythm Nonspecific ST abnormality Abnormal ECG Confirmed by Sanya Harris ([id number]) on 08/03/2024 10:33:14 AM Referred By: REFERRED SELF Confirmed By: Sanya Harris
--- NOTE | 2024-08-03 12:40 | Magnetic Resonance Report ---
MR lumbar spine wo con CLINICAL HISTORY: low back pain; LLE numbness. COMPARISON: 10/10/2005 TECHNIQUE: Multiplanar, multi sequence MRI of the lumbar spine was performed without intravenous cont rast. FINDINGS: The conus is within normal limits in size shape and location. No significant vertebral body lesions seen. No aortic aneurysm or periaortic adenopathy identified. There is mild bladder distenti on. There is a new central disc herniation at T12-L1 that was not evaluated axially. It causes mild, vent ral effacement of the adjacent conus. There is progressive degenerative disc disease at L1-L2 with disc space narrowing and disc desiccatio n. There is a mild diffuse annular bulge with no significant neural compromise. L2-L3 level is unchanged and unremarkable. L3-L4 level demonstrates progressive desiccation of the disc with a slight annulus bulge with no sign ificant neural compromise. L4-L5 level demonstrates newly demonstrated disc desiccation and a left lateral disc protrusion effac ing the exiting nerve root within the foramen. L5-S1 level demonstrates disc desiccation with disc space narrowing and a left paracentral disc protr usion essentially unchanged since the prior examination. The left S1 nerve root appears to be delaney sed within the lateral recess. The right lateral recess is narrowed as well although slightly less pr onounced. There is mild bilateral foraminal stenosis left greater than right. Hypertrophic facet arth ropathy is noted at this level as well. IMPRESSION: Newly demonstrated a central disc protrusion at T12-L1 causing mild ventral effacement of the adjacent conus. Axial images were not performed. New left lateral disc protrusion at L4-5 causing significant foraminal stenosis. Persistent left paracentral disc protrusion at L5-S1 causing bilateral lateral recess stenosis and fo raminal stenosis left greater than right. These findings are essentially unchanged when compared with the prior study. ACT 112: Negative or not required by law. The above report was generated using voice recognition software. It may contain grammatical, syntax o r spelling errors. Electronically signed by: Jackelyn Martinez M.D. 08/03/2024 12:39 PM
--- NOTE | 2024-08-03 14:39 | History & Physical Report ---
<Statement entered by Charles Lamas, DO - 08/03/24 16:27> I have seen and examined the patient and have discussed the case with the advance practice provider. I have reviewed the advanced practitioner's documentation, and I agree with, and take responsibility for that plan of care. Patient seen and examined while still in ED. Pain acutely exacerbated on Friday. Paresthesias and weakness worsened throughout the week. Fall last night. Reviewed plan for medical treatment and consultation with orthopedic spine. Patient agreeable. Further plan of care as outlined below, discussed with TAMIKO. I spent a total of 12 minutes coordinating, documenting, and providing care for this patient excluding time spent by another provider/QHP. Date of Service August 03, 2024 Assessment & Plan (1) Lumbar herniated disc: (2) Lumbar radicular pain: (3) Ambulatory dysfunction: Plan: This is a 68-year-old female with PMH of hypertension, hyperlipidemia, prediabetes, GERD, sciatica, mood disorder and other medical problems listed b elow who presents from home with progressive worsening back pain x 1 week. Acute on chronic thoracic and lumbar radiculopathy with new L foot paresthesias and weakness x 1 week In ED, given 125mg IV Solumedrol x 1, Morphine 4mg x 2, lidocaine patch MRI lumbar spine with a : 1. Newly demonstrated a central disc protrusion at T12-L1 causing mild ventral effacement of the adjacent conus. Axial images were not performed. 2. New left lateral disc protrusion at L4-5 causing significant foraminal stenosis. 3. Persistent left paracentral disc protrusion at L5-S1 causing bilateral lateral recess stenosis and foraminal stenosis left greater than right. These findings are essentially unchanged from previous. Case coordinated with Dr. Gama - -Decadron 10mg IV Q8H x 48 hours, then plan to transition to PO -Starting Lyrica 75mg BID -Outpatient surgery vs inpatient later in the week if no improvement Pain control with scheduled Tylenol, lidocaine patch, PRN dilaudid for severe pain PT/OT evaluation Fall precautions (4) Diabetes mellitus, type II: Plan: A1c 6.5 12/ Hold home agents SSI while in-patient Glycemic consult placed in setting of high dose steroids/possible OR BSG AC HS (5) HTN (hypertension): Plan: Continue losartan 50mg, Lopressor 50mg BID, hctz 12.5mg daily (6) MDD (major depressive disorder): Plan: Continue fluoxetine (7) Hyperlipidemia: Plan: Continue statin DVT Ppx: SCDs for now Code status: FULL PCP: Margareth Dispo: Admitted to med/surg Patient seen in collaboration with Dr. Lamas. Please see addendum. I spent a total of 75 minutes coordinating, documenting, and providing care for this patient excluding time spent in the performance of separately billed services or time spent by another provider/QHP. History of Present Illness Chief Complaint: Back pain Primary Care Provider: Keerthi Zuluaga DO This is a 68-year-old female with PMH of hypertension, hyperlipidemia, prediabetes, GERD, sciatica, mood disorder and other medical problems listed below who presents from home with progressive worsening back pain x 1 week. Patient states she has had chronic back pain for years that she describes as predominantly on the left side of her lower back with extension to buttocks and posterior leg. For the past week, patient has had worsened pain on the left side radiating down anterior aspect of left leg with associated numbness and weakness of left foot. Was ambulating to the bathroom overnight and when she got up from the toilet, her left foot gave out and she fell, landing on her buttocks. Denies any head trauma or loss of consciousness. Denies any saddle anesthesia or bowel or bladder incontinence. Has seen orthopedic surgery in the past but is elected not to pursue surgery because she felt pain was manageable. Has never attempted any possible injections. Has chronic intermittent nausea at baseline but denies any now. No fever, chills, lightheadedness, chest pain, shortness of breath, vomiting, abdominal pain, dysuria, diarrhea or constipation. Did not take any of her meds this morning. Allergies Allergy/AdvReac Type Severity Reaction Status Date / Time No Known Allergies Allergy Unverified 04/21/10 12:52 Home Medications Medication Instructions Recorded Confirmed Type metoprolol tartrate 50 mg tablet 50 mg PO BID ##0 04/21/10 08/03/24 History omeprazole 20 mg capsule,delayed 20 mg PO DAILY #0 caps 07/18/13 08/03/24 History release fluoxetine 40 mg capsule 40 mg PO DAILY 08/03/24 08/03/24 History hydrochlorothiazide 12.5 mg capsule 12.5 mg PO DAILY 08/03/24 08/03/24 History losartan 50 mg tablet 50 mg PO DAILY 08/03/24 08/03/24 History metformin 500 mg tablet,extended 1,000 mg PO BID 08/03/24 08/03/24 History release 24 hr ondansetron HCl 4 mg tablet 4 mg PO DIRECTED PRN N/V 08/03/24 08/03/24 History rosuvastatin 20 mg tablet 20 mg PO DAILY 08/03/24 08/03/24 History Past Med/Surg History Problem List (Updated 08/03/24 @ 15:49 by Jeanine Mahan PA-C) Lumbar radicular pain Ambulatory dysfunction (Acute) Lumbar herniated disc (Acute) Medical History (Updated 08/03/24 @ 15:49 by Jeanine Mahan PA-C) Chronic left-sided back pain MDD (major depressive disorder) Sciatica HTN (hypertension) Diabetes mellitus, type II Hyperlipidemia Surgical History Hx of tonsillectomy H/O colonoscopy with polypectomy Family History Other Cancer Colorectal cancer Diabetes Lung cancer Social History Smoking Status: Never smoker Hx Alcohol Use: No Hx Substance Use: No Preferred Language: Fijian Feels Safe at Home: Yes Review of Systems Review of Systems: At least ten systems reviewed and negative except as noted in the HPI. Physical Exam Physical Exam: General Appearance: WD/WN, vitals as above, NAD, sitting up in bed, in acute pain Head: normocephalic, atraumatic Eyes: normal inspection, PERRL, conjunctivae normal, anicteric sclerae ENT: external ear and nose normal, oropharynx normal Neck: normal visual inspection Respiratory: normal respiratory effort, lungs clear to auscultation, no wheeze, rales, rhonchi. No accessory muscle use Cardiovascular: regular rate, rhythm, normal peripheral pulses, no BLE edema. Vessels: no JVD Chest: normal inspection of chest Abdomen/GI: normal bowel sounds, soft, nontender, no hepatosplenomegaly Extremities/Musculoskeletal: no cyanosis or clubbing, extremities motor strength 5/5 Neurologic: PERRL, EOMI, accommodation nl, no face palsy, no dysarthria, CN's II-XI intact bilaterally and moves all extremities. TTP L lumbar paraspinal region extending to glutes and L hip. LLE MICHAEL 4/5 LLE, sensation decreased below L knee. RLE 5/5 MICHAEL, sensation intact Psychiatric: A+Ox3, euthymic affect Skin: no rashes, normal color, warm/dry Results & Data Results & Data Vital Signs (Past 12 Hours) Vital Signs Temp Pulse Pulse Resp BP BP Pulse Ox 08/03/24 13:21 88 12 163/104 H 95 08/03/24 13:08 85 16 170/99 H 95 08/03/24 13:00 91 H 12 170/99 H 93 08/03/24 12:36 82 16 156/85 H 93 08/03/24 12:12 85 12 153/101 H 94 08/03/24 11:30 77 14 146/92 H 93 08/03/24 11:08 76 08/03/24 10:33 82 14 147/100 H 95 08/03/24 10:00 76 12 157/89 H 95 08/03/24 09:36 78 14 157/89 H 98 08/03/24 09:15 80 12 157/102 H 96 08/03/24 08:36 79 12 143/92 H 95 08/03/24 08:03 76 12 144/91 H 94 08/03/24 07:52 79 18 145/98 H 97 08/03/24 07:17 95 H 08/03/24 06:34 100 08/03/24 06:34 36.6 C 85 18 163/118 H 95 O2 Del Method 08/03/24 13:21 Room Air 08/03/24 13:08 Room Air 08/03/24 13:00 Room Air 08/03/24 12:36 Room Air 08/03/24 12:12 Room Air 08/03/24 11:30 Room Air 08/03/24 11:08 08/03/24 10:33 Room Air 08/03/24 10:00 Room Air 08/03/24 09:36 Room Air 08/03/24 09:15 Room Air 08/03/24 08:36 Room Air 08/03/24 08:03 Room Air 08/03/24 07:52 Room Air 08/03/24 07:17 08/03/24 06:34 08/03/24 06:34 Laboratory Results Short CBC 08/03/24 Range/Units 06:52 WBC 8.08 (4.8-10.8) K/ul Hgb 14.2 (12.0-16.0) g/dl Hct 43.6 (37.0-47.0) % Plt Count 249 (130-400) K/uL BMP 08/03/24 06:52 Sodium 135 L Potassium 3.6 Chloride 99 Carbon Dioxide 25 BUN 15 Creatinine 0.76 Glucose 144 H Calcium 9.9 Liver Function 08/03/24 Range/Units 06:52 Total Bilirubin 0.5 (0.2-1.0) mg/dl AST 23 (13-39) U/L ALT 24 (7-52) U/L Alkaline Phosphatase 69 (34-104) U/L Albumin 4.2 (3.4-5.0) gm/dl
--- NOTE | 2024-08-03 15:24 | XRay Report ---
XR chest 1V portable CLINICAL HISTORY: pre-op COMPARISON STUDY: No previous studies for comparison. FINDINGS: Lung volumes are normal. Lungs are clear. There is no pneumothorax or pleural effusion. Car diac size is normal. Mediastinal contours are normal. There is no evidence for pulmonary edema. IMPRESSION: No acute cardiopulmonary findings. ACT 112: Negative or not required by law. Electronically signed by: Adrian Solomon M.D. 08/03/2024 3:23 PM
[2024-08-03] MEDS ORDERED: ONDANSETRON INJ 2 MG/ML 2 ML VIAL IV PRN (15:30)
[2024-08-03] MEDS ORDERED: GLUCOSE 10 TAB/TUBE PO PRN (15:31)
[2024-08-03] MEDS ORDERED: CARBOHYDRATES FOR HYPOGLYCEMIA PO PRN (15:31)
[2024-08-03] MEDS ORDERED: GLUCOSE 40% GEL 15 GM TUBE PO PRN (15:31)
[2024-08-03] MEDS ORDERED: DEXTROSE 50% 50 ML SYRINGE IV PRN (15:31)
[2024-08-03] MEDS ORDERED: GLUCAGON FOR INJ 1 MG VIAL SQ PRN (15:31)
[2024-08-03] MEDS ORDERED: PHARMACY GLYCEMIC MGMT CONSULT PRN (15:40)
[2024-08-03 15:48] LABS: Appearance Urine Clear (Clear); Bacteria Urine Automated 4+ (None Seen); Bilirubin Urine Negative (Negative); Blood Urine Negative (Negative); Cast Urine Automated 0-2 /lpf (0-2); Color Urine Yellow; Epithelial Cell Urine Auto 0-2 /hpf (0-2); Glucose Urine UA Negative (Negative); Ketones Urine Trace (Negative); Leukocyte Esterase Urine Trace (Negative); Nitrite Urine Negative (Negative); Protein Urine Negative (Negative); RBC Urine Automated 0-2 /hpf (0-2); Specific Gravity Urine 1.013 (1.000-1.030); Urobilinogen Urine Negative (Negative); WBC Urine Automated 0-5 /hpf (0-5); pH Urine 5.5 (4.5-7.5)
[2024-08-03] MEDS: FLUoxetine HCL 20 MG CAP PO ONE (16:40)
[2024-08-03] MEDS: LOSARTAN POTASSIUM 50 MG TAB PO STA (16:40)
[2024-08-03] MEDS: METOPROLOL TARTRATE 50 MG TAB PO STA (16:40)
[2024-08-03] MEDS: PREGABALIN 75 MG CAP PO SCH (16:40)
[2024-08-03] MEDS: ACETAMINOPHEN 500 MG TAB PO SCH (16:40)
[2024-08-03] MEDS ORDERED: DEXAMETHASONE SOD INJ 4 MG/ML VIAL IV SCH (18:00)
[2024-08-03] MEDS: HYDROmorphone INJ 0.5 MG/0.5 ML SYR IV PRN (18:05)
--- NOTE | 2024-08-03 18:46 | Orthopedic Progress Note ---
Date of Service August 03, 2024 Assessment & Plan (1) Lumbar stenosis without neurogenic claudication: (2) Lumbar radicular pain: (3) Lumbar herniated disc: (4) Lumbar spondylosis: Plan Patient has been admitted for pain control and ambulatory dysfunction. She has been started on IV steroids and Lyrica, would like her to try mobilizing with PT in the AM to evaluate her functional status. She would benefit from trial of IV steroids, if she improves could convert to PO taper. If she does not have improvement could discuss the possibility of epidural injections or possibly surgery if she remains in such pain. Will follow along, agree with darren and elza. Subjective Chief Complaint Left Leg pain and Numbness HPI: 68 year old female with history of chronic lumbar pain and left S1 radiculopathy. She has had longstanding LLE pain in an S1 dermatome, surgery was recommended in the past however she deferred. Last week she had worsening back pain and new LLE pain and numbness that went doen the left leg, anterior Kneee and medial calf in L4 dermatomal pattern. This is distinctly different from her chronic symptoms, the other day she fell due to leg pain as well as numbness from the knee down causing altered gait. Normal bowel/bladder function. No back surgery, no epidurals. Review of Systems All systems reviewed & are unremarkable except as noted in HPI & below. Physical Exam 5/5 strength bilateral hip flexor, quad, tib an, EHl, GS SILT L2- S1 on right, SILT Left L2-L3, decreased sensation with paresthesias left L4, L5, S1 diminished left patella,bsent left achilles reflexes Results & Data Results & Data Laboratory Results . Diagnostic Findings CT Lumbar spine interpreted personally, shows diffuse spondylosis with retrolisthesis L5-S1, L1-2. Severe disc degeneration and posterior left osteophyte L5-S1 with sever facet arthropathy left worse than right, bone spurs growing into bilateral foramen MRI lumbar interpreted personally, severe L5-S1 facet arthropathy with severe lateral recess stenosis and moderate to severe foraminal stenosis bilaterally with contact of traversing left S1 nerve and exiting bilateral L5 nerves. L4-5 facet arthropathy, left foraminal disc herniation with severe foraminal stenosis and compressing exiting left L4 nerve root. PG Care Time/CCT Total # of Minutes Spent Total Time Spent with Patient: Total time spent is greater than 50% in coordination of care (as documented) at patient's floor/unit and/or counseling patient: [place] [address] SUB INP/OBS CARE 2/35MIN Patient Type New History Problem Focused Exam Expanded Problem Focused Medical Decision Making Moderate Complexity Diagnoses Lumbar stenosis without neurogenic claudication M48.061 Lumbar radicular pain M54.16 Lumbar herniated disc M51.26 Lumbar spondylosis M47.816
[2024-08-03] MEDS: INSULIN ASPART PER UNIT CHARGE SC SCH (19:54)
[2024-08-03] MEDS ORDERED: POLYETHYLENE (MIRALAX) 17 GM PACK PO PRN (20:13)
[2024-08-03] MEDS: dexAMETHasone 10 MG in SYRINGE 0 ML IV SCH (21:32)
[2024-08-03] MEDS: KETOROLAC TROMETHAMINE 15 MG/ML VIAL IV ONE (22:21)
[2024-08-03] MEDS: METOPROLOL TARTRATE 50 MG TAB PO SCH (22:22)
[2024-08-04 07:34] VITALS: RESP 16
[2024-08-04 08:44] LABS: Hematocrit (blood only) 43.8 % (37.0-47.0); Hemoglobin 14.3 g/dl (12.0-16.0); Mean Corpuscular Hemoglobin 29.7 pg (25.0-34.0); Mean Corpuscular Hgb Conc 32.6 g/dL (32.0-36.0); Mean Corpuscular Volume 91.1 fL (80.0-100.0); Mean Platelet Volume 11.3 fL (9.4-12.4); Platelet Count 274 K/uL (130-400); RDW Coefficient of Variation 11.9 % (11.5-14.5); RDW Standard Deviation 39.9 fL (36.4-46.3); Red Blood Count 4.81 M/uL (4.20-5.40); White Blood Count 9.55 K/ul (4.8-10.8)
--- NOTE | 2024-08-04 08:46 | Pharmacy Report ---
Pharmacy Glycemic Short Note 2 - Date of Service August 04, 2024 - Glycemic Short BSG Results (Last 24 hours): 08/03/24 08/03/24 08/04/24 18:39 21:39 07:23 POC Glucose 178 H 148 H 139 H OUTPATIENT ANTIDIABETIC REGIMEN: * metformin 1000 mg PO BIDM HbA1c: ordered for 08/05/24 ASSESSMENT: * TY is a 68 year old female who presented to ED with progressively worsening lower back pain w/ left leg numbness * Patient has history of chronic lumbar pain w/ left S1 radiculopathy. Lumbar MRI shows new left lateral disc protrusion at L5-S1 causing bilateral recess/foraminal stenosis. * Ordered dexamethasone 10 mg IV q8h at this time * Blood sugars reasonably controlled so far. Will start with low-dose basal/mod- intensity bolus and intensify if needed PLAN FOR INPATIENT GLYCEMIC CONTROL: * Hold outpatient oral diabetes medications * Basal insulin * Lantus 10 units SC daily * Lantus 0-5-10 units SC HS (see EHR for details) * Reassess in AM * Bolus insulin * NovoLog per scale ACHS or Q6hrs while NPO * Goal Range: Low 110 mg/dL - High 140 mg/dL * Correction Factor: 25 mg/dL/unit * Nutritional / Prandial insulin per carb ratio of 1 unit per 8 grams CHO consumed
[2024-08-04] MEDS: ROSUVASTATIN CALCIUM 20 MG TAB PO SCH (08:50)
[2024-08-04] MEDS: FLUoxetine HCL 20 MG CAP PO SCH (08:50)
[2024-08-04] MEDS: PANTOprazole 40 MG TAB PO SCH (08:51)
[2024-08-04] MEDS: LANTUS PER UNIT CHARGE SC SCH ×2 (08:55→20:55)
[2024-08-04] MEDS ORDERED: LOSARTAN POTASSIUM 50 MG TAB PO SCH ×2 (09:00)
[2024-08-04] MEDS ORDERED: hydroCHLOROthiazide 25 MG TAB PO SCH (09:00)
[2024-08-04 09:03] LABS: BUN Creatinine Ratio 28.4 (10-20); Calcium 10.3 mg/dl (8.6-10.3); Creatinine Clr Calc Pharmacy 48.1 ml/min; Potassium 4.3 mmol/L (3.5-5.1)
[2024-08-04] MEDS: cefTRIAXone SODIUM 1,000 MG/50 ML BAG IV SCH (09:44)
--- NOTE | 2024-08-04 10:55 | Orthopedic Progress Note ---
Date of Service August 04, 2024 Assessment & Plan (1) Lumbar spondylosis: (2) Lumbar stenosis without neurogenic claudication: (3) Lumbar radicular pain: (4) Lumbar herniated disc: Plan Patient improving with medication, recommend transitioning to extended PO steroid taper of decadron or methylprednisolone for 12-14 days. Continue Lyrica, recommend starting outpatient PT for mobilization. OK for dc from spine standpoint as long as ambulating safely and pain remains controlled, follow up in office 1-2 weeks. Subjective Pain is much improved today, some sensaton of left knee giving out with PT, but did well with walker. For current level of pain not interested in surgery, may consider epidural as an outpatient. Review of Systems All systems reviewed & are unremarkable except as noted in HPI & below. Physical Exam 5/5 strength bilateral hip flexor, quad, tib an, EHl, GS SILT L2- S1 on right, SILT Left L2-L3, decreased sensation with paresthesias left L4, L5, S1 however sensation improving diminished left patella,bsent left achilles reflexes Results & Data Results & Data Laboratory Results . Diagnostic Findings . PG Care Time/CCT Total # of Minutes Spent Total Time Spent with Patient: Total time spent is greater than 50% in coordination of care (as documented) at patient's floor/unit and/or counseling patient: Coding Level of Care Code 19006 SUB INP/OBS CARE 07/10MIN Diagnoses Lumbar spondylosis M47.816 Lumbar stenosis without neurogenic claudication M48.061 Lumbar radicular pain M54.16 Lumbar herniated disc M51.26
--- NOTE | 2024-08-04 14:48 | Hospitalist Progress Note ---
Date of Service August 04, 2024 Assessment & Plan (1) Lumbar herniated disc: (2) Lumbar radicular pain: (3) Ambulatory dysfunction: Plan: Patient is a 68 yr female with PMH of hypertension, hyperlipidemia, prediabetes, GERD, sciatica, mood disorder and other medical problems listed below who presents from home with progressive worsening back pain x 1 week. Acute on chronic thoracic and lumbar radiculopathy Lumbar spondylosis/stenosis Lumbar herniated disc --MRI lumbar spine:Newly demonstrated a central disc protrusion at T12-L1 causing mild ventral effacement of the adjacent conus. Axial images were not performed. New left lateral disc protrusion at L4-5 causing significant foraminal stenosis.Persistent left paracentral disc protrusion at L5-S1 causing bilateral lateral recess stenosis and foraminal stenosis left greater than right. These findings are essentially unchanged from previous. --Plan to transition IV Decadron to prolonged taper course of oral steroid Continue PT OT Appreciate orthopedics input Needs follow-up with orthopedics on discharge Continue Lyrica for now Fall precautions Urinary tract infection Urine culture growing E. coli Empirically on IV Rocephin (4) Diabetes mellitus, type II: Plan: A1c 6.5 05/24 Hold home agents SSI while in-patient Glycemic consult placed in setting of high dose steroids/possible OR BSG AC HS (5) HTN (hypertension): Plan: Hold losartan, HCTZ as blood pressure relatively low Continue metoprolol with holding parameters Monitor platelets closely (6) MDD (major depressive disorder): Plan: Continue fluoxetine (7) Hyperlipidemia: Plan: Continue statin DVT Px: SCDs for now Code status: FULL CODE Admission and Anticipated Discharge Date Admission Date: August 03, 2024 Subjective Patient is seen and examined at bedside Lower back pain is much improved Offers no new complaints Denies any chest pain, dyspnea, nausea, vomiting, abdominal pain Review of Systems Review of Systems: All systems reviewed & are unremarkable except as noted in Subjective Physical Exam Physical Exam: Physical Exam: Vitals signs as noted above General Appearance:Moderately built and nourished, no apparent distress Head: normocephalic, Atraumatic Eyes: normal inspection, EOMI Neck: supple, Trachea midline Respiratory/Chest: Normal breath sounds, CTA, No accessory muscle use Cardiovascular: S1, S2, No murmur Abdomen/GI:Soft, Non tender, Bowel sounds present Extremities/Musculoskeletal:normal inspection, no edema, mild lower back tenderness Neurologic/Psych:AAOX3, grossly no focal neurological deficits Skin: normal color, warm Results & Data Results & Data Vital Signs (Past 12 Hours) Vital Signs Temp Pulse Pulse Resp BP Pulse Ox O2 Del Method 08/04/24 08:48 68 110/64 08/04/24 07:23 36.6 C 86 16 94/63 L 95 Room Air Laboratory Results Short CBC 08/04/24 Range/Units 08:01 WBC 9.55 (4.8-10.8) K/ul Hgb 14.3 (12.0-16.0) g/dl Hct 43.8 (37.0-47.0) % Plt Count 274 (130-400) K/uL BMP 08/04/24 08:01 Sodium 134 L Potassium 4.3 Chloride 98 Carbon Dioxide 29 BUN 31 H Creatinine 1.09 D Glucose 159 H Calcium 10.3 Urine 08/03/24 Range/Units 15:23 Urine Color Yellow Urine Appearance Clear (Clear) Urine pH 5.5 (4.5-7.5) Ur Specific [place] 1.013 (1.000-1.030) Urine Protein Negative (Negative) Urine Glucose (UA) Negative (Negative)
[2024-08-05 07:13] VITALS: TEMP 97.7; O2SAT 96
[2024-08-05 08:18] LABS: Hematocrit (blood only) 43.6 % (37.0-47.0); Hemoglobin 14.2 g/dl (12.0-16.0); Mean Corpuscular Hemoglobin 29.6 pg (25.0-34.0); Mean Corpuscular Hgb Conc 32.6 g/dL (32.0-36.0); Mean Platelet Volume 11.3 fL (9.4-12.4); Platelet Count 297 K/uL (130-400); RDW Standard Deviation 40.2 fL (36.4-46.3); Red Blood Count 4.79 M/uL (4.20-5.40); White Blood Count 12.76 K/ul (4.8-10.8)
[2024-08-05 08:30] VITALS: BP 126/80; PULSE 73
[2024-08-05 08:39] LABS: BUN Creatinine Ratio 38.9 (10-20); Calcium 9.9 mg/dl (8.6-10.3); Creatinine Clr Calc Pharmacy 58.3 ml/min; Magnesium 2.1 mg/dl (1.7-2.4)
[2024-08-05] MEDS: LANTUS PER UNIT CHARGE SC SCH (08:44)
[2024-08-05] MEDS: dexAMETHasone 10 MG in SYRINGE 0 ML IV SCH (08:50)
[2024-08-05 09:12] LABS: Estimated Average Glucose 128 mg/dl; Hemoglobin A1C 6.1 % (4.5-5.6)
--- NOTE | 2024-08-05 12:38 | Hospitalist Progress Note ---
Date of Service August 05, 2024 Assessment & Plan (1) Lumbar herniated disc: (2) Lumbar radicular pain: (3) Ambulatory dysfunction: Plan: Patient is a 68 yr female with PMH of hypertension, hyperlipidemia, prediabetes, GERD, sciatica, mood disorder and other medical problems listed below who presents from home with progressive worsening back pain x 1 week. Acute on chronic thoracic and lumbar radiculopathy Lumbar spondylosis/stenosis Lumbar herniated disc --MRI lumbar spine:Newly demonstrated a central disc protrusion at T12-L1 causing mild ventral effacement of the adjacent conus. Axial images were not performed. New left lateral disc protrusion at L4-5 causing significant foraminal stenosis.Persistent left paracentral disc protrusion at L5-S1 causing bilateral lateral recess stenosis and foraminal stenosis left greater than right. These findings are essentially unchanged from previous. --Plan to transition IV Decadron to prolonged taper course of oral steroid Continue PT OT Appreciate orthopedics input Continue Lyrica for now Fall precautions Advised to follow-up with orthopedics on discharge Urinary tract infection Urine culture growing E. coli Empirically on IV Rocephin Transition to oral antibiotics on discharge to complete the course (4) Diabetes mellitus, type II: Plan: A1c 6.5 05/24 Hold home agents SSI while in-patient Glycemic consult placed in setting of high dose steroids/possible OR BSG AC HS (5) HTN (hypertension): Plan: Hold losartan, HCTZ as blood pressure relatively low Continue metoprolol with holding parameters Monitor platelets closely (6) MDD (major depressive disorder): Plan: Continue fluoxetine (7) Hyperlipidemia: Plan: Continue statin DVT Px: SCDs for now Code status: FULL CODE Disposition Home Denies home health needs Admission and Anticipated Discharge Date Admission Date: August 03, 2024 Subjective Patient is seen and examined at bedside Still has low back pain but controlled Offers no new complaints Denies any chest pain, dyspnea, nausea, vomiting, abdominal pain Prefers to be discharged home today Review of Systems Review of Systems: All systems reviewed & are unremarkable except as noted in Subjective Physical Exam Physical Exam: Physical Exam: Vitals signs as noted above General Appearance:Moderately built and nourished, no apparent distress Head: normocephalic, Atraumatic Eyes: normal inspection, EOMI Neck: supple, Trachea midline Respiratory/Chest: Normal breath sounds, CTA, No accessory muscle use Cardiovascular: S1, S2, No murmur Abdomen/GI:Soft, Non tender, Bowel sounds present Extremities/Musculoskeletal:normal inspection, no edema, mild lower back tenderness Neurologic/Psych:AAOX3, grossly no focal neurological deficits Skin: normal color, warm Results & Data Results & Data Vital Signs (Past 12 Hours) Vital Signs Temp Pulse Resp BP Pulse Ox O2 Del Method 08/05/24 07:12 36.5 C 73 16 126/80 96 Room Air Laboratory Results Short CBC 08/05/24 Range/Units 07:39 WBC 12.76 H (4.8-10.8) K/ul Hgb 14.2 (12.0-16.0) g/dl Hct 43.6 (37.0-47.0) % Plt Count 297 (130-400) K/uL BMP 08/05/24 07:39 Sodium 137 Potassium 4.0 Chloride 101 Carbon Dioxide 30 BUN 35 H Creatinine 0.90 Glucose 123 H Calcium 9.9
--- NOTE | 2024-08-05 12:58 | Discharge Summary ---
Date of Service August 05, 2024 Admission HPI Per Admitting Provider This is a 68-year-old female with PMH of hypertension, hyperlipidemia, prediabetes, GERD, sciatica, mood disorder and other medical problems listed below who presents from home with progressive worsening back pain x 1 week. Patient states she has had chronic back pain for years that she describes as predominantly on the left side of her lower back with extension to buttocks and posterior leg. For the past week, patient has had worsened pain on the left side radiating down anterior aspect of left leg with associated numbness and weakness of left foot. Was ambulating to the bathroom overnight and when she got up from the toilet, her left foot gave out and she fell, landing on her buttocks. Denies any head trauma or loss of consciousness. Denies any saddle anesthesia or bowel or bladder incontinence. Has seen orthopedic surgery in the past but is elected not to pursue surgery because she felt pain was manageable. Has never attempted any possible injections. Has chronic intermittent nausea at baseline but denies any now. No fever, chills, lightheadedness, chest pain, shortness of breath, vomiting, abdominal pain, dysuria, diarrhea or constipation. Did not take any of her meds this morning. Admission Exam Per Admitting Provider General Appearance: WD/WN, vitals as above, NAD, sitting up in bed, in acute pain Head: normocephalic, atraumatic Eyes: normal inspection, PERRL, conjunctivae normal, anicteric sclerae ENT: external ear and nose normal, oropharynx normal Neck: normal visual inspection Respiratory: normal respiratory effort, lungs clear to auscultation, no wheeze, rales, rhonchi. No accessory muscle use Cardiovascular: regular rate, rhythm, normal peripheral pulses, no BLE edema. Vessels: no JVD Chest: normal inspection of chest Abdomen/GI: normal bowel sounds, soft, nontender, no hepatosplenomegaly Extremities/Musculoskeletal: no cyanosis or clubbing, extremities motor strength 5/5 Neurologic: PERRL, EOMI, accommodation nl, no face palsy, no dysarthria, CN's II-XI intact bilaterally and moves all extremities. TTP L lumbar paraspinal region extending to glutes and L hip. LLE MICHAEL 4/5 LLE, sensation decreased below L knee. RLE 5/5 MICHAEL, sensation intact Psychiatric: A+Ox3, euthymic affect Skin: no rashes, normal color, warm/dry Principal Diagnosis Acute on chronic thoracic and lumbar radiculopathy Lumbar spondylosis/stenosis Lumbar herniated disc Urinary tract infection Discharge Data Allergies Allergy/AdvReac Type Severity Reaction Status Date / Time No Known Allergies Allergy Unverified 04/21/10 12:52 Consultations 08/03/24 13:46 Consult Orthopedic Spine Surgery Stat 08/03/24 14:09 ED Decision to Admit Stat Procedures Performed Laboratory Results WBC 12.76 K/ul (4.8-10.8) H 08/05/24 07:39 RBC 4.79 M/uL (4.20-5.40) 08/05/24 07:39 Hgb 14.2 g/dl (12.0-16.0) 08/05/24 07:39 Hct 43.6 % (37.0-47.0) 08/05/24 07:39 MCV 91.0 fL (80.0-100.0) 08/05/24 07:39 MCH 29.6 pg (25.0-34.0) 08/05/24 07:39 MCHC 32.6 g/dL (32.0-36.0) 08/05/24 07:39 RDW Std Deviation 40.2 fL (36.4-46.3) 08/05/24 07:39 RDW Coeff of Augustin 12.0 % (11.5-14.5) 08/05/24 07:39 Plt Count 297 K/uL (130-400) 08/05/24 07:39 MPV 11.3 fL (9.4-12.4) 08/05/24 07:39 Immature Gran % (Auto) 0.2 % 08/03/24 06:52 Neut % (Auto) 61.8 % 08/03/24 06:52 Lymph % (Auto) 25.2 % 08/03/24 06:52 Osborne % (Auto) 12.1 % 08/03/24 06:52 Eos % (Auto) 0.5 % 08/03/24 06:52 Baso % (Auto) 0.2 % 08/03/24 06:52 Neut # (Auto) 4.98 K/uL (1.40-6.50) 08/03/24 06:52 Lymph # (Auto) 2.04 K/uL (1.20-3.40) 08/03/24 06:52 Osborne # (Auto) 0.98 K/uL (0.11-0.59) H 08/03/24 06:52 Eos # (Auto) 0.04 K/uL (0.00-0.50) 08/03/24 06:52 Baso # (Auto) 0.02 K/uL (0.00-0.20) 08/03/24 06:52 Immature Gran # (Auto) 0.02 K/uL (0.01-0.20) 08/03/24 06:52 Sodium 137 mmol/L (136-145) 08/05/24 07:39 Potassium 4.0 mmol/L (3.5-5.1) 08/05/24 07:39 Chloride 101 mmol/L (98-107) 08/05/24 07:39 Carbon Dioxide 30 mmol/L (21-32) 08/05/24 07:39 Anion Gap 6 (3-11) 08/05/24 07:39 BUN 35 mg/dl (6-23) H 08/05/24 07:39 Creatinine 0.90 mg/dl (0.6-1.2) 08/05/24 07:39 Est Cr Clr Drug Dosing 58.3 ml/min 08/05/24 07:39 eGFR 69.64 08/05/24 07:39 BUN/Creatinine Ratio 38.9 (10-20) H 08/05/24 07:39 Glucose 123 mg/dl (70-99(Fasting)) H 08/05/24 07:39 POC Glucose 78 mg/dl (70-99) 08/05/24 11:40 Estimat Average Glucose 128 mg/dl 08/05/24 07:39 Hemoglobin A1c 6.1 % (4.5-5.6) H 08/05/24 07:39 Calcium 9.9 mg/dl (8.6-10.3) 08/05/24 07:39 Magnesium 2.1 mg/dl (1.7-2.4) 08/05/24 07:39 Total Bilirubin 0.5 mg/dl (0.2-1.0) 08/03/24 06:52 AST 23 U/L (13-39) 08/03/24 06:52 ALT 24 U/L (7-52) 08/03/24 06:52 Alkaline Phosphatase 69 U/L (34-104) 08/03/24 06:52 Total Protein 7.5 gm/dl (6.0-8.3) 08/03/24 06:52 Albumin 4.2 gm/dl (3.4-5.0) 08/03/24 06:52 Globulin 3.3 gm/dl (2.5-4.0) 08/03/24 06:52 Albumin/Globulin Ratio 1.3 (0.9-2) 08/03/24 06:52 TSH 2.438 uIu/ml (0.300-4.500) 08/03/24 06:52 Urine Color Yellow 08/03/24 15:23 Urine Appearance Clear (Clear) 08/03/24 15:23 Urine pH 5.5 (4.5-7.5) 08/03/24 15:23 Ur Specific [place] 1.013 (1.000-1.030) 08/03/24 15:23 Urine Protein Negative (Negative) 08/03/24 15:23 Urine Glucose (UA) Negative (Negative) 08/03/24 15:23 Urine Ketones Trace (Negative) H 08/03/24 15:23 Urine Blood Negative (Negative) 08/03/24 15:23 Urine Nitrite Negative (Negative) 08/03/24 15:23 Urine Bilirubin Negative (Negative) 08/03/24 15:23 Urine Urobilinogen Negative (Negative) 08/03/24 15:23 Ur Leukocyte Esterase Trace (Negative) H 08/03/24 15:23 Urine WBC (Auto) 0-5 /hpf (0-5) 08/03/24 15:23 Urine RBC (Auto) 0-2 /hpf (0-2) 08/03/24 15:23 U Hyaline Cast (Auto) 0-2 /lpf (0-2) 08/03/24 15:23 U Epithel Cells (Auto) 0-2 /hpf (0-2) 08/03/24 15:23 Urine Bacteria (Auto) 4+ (None Seen) H 08/03/24 15:[address] 08/03/24 07:06 EXAM: CT lumbar spine wo con CLINICAL HISTORY: Low back pain; L leg numbness. TECHNIQUE: A CT scan of the lumbar spine was performed without the administration of intravenous contrast. Contiguous axial images were obtained from the upper lumbar spine to the sacrum. Coronal and sagittal reformatted images were also reviewed. One of the following dose-reduction techniques was utilized for this exam. Automated exposure control, adjustment of the mA and/or kV according to patient size, and use of iterative reconstruction. DLP: 1136.6 mGy-cm, CTDI: 39.3 mGy. COMPARISON: No previous studies are available for comparison. FINDINGS: Vertebrae: Mild straightening of lumbar spine. Grade I retrolisthesis of L1 over L2 vertebra and L5 over S1. Marginal osteophytes in vertebrae. The vertebral bodies are normal in height. No evidence of acute fracture or dislocation. The cortical and trabecular bone patterns are normal. No signs of lytic or sclerotic lesions. Normal configuration of the posterior elements. Intervertebral Discs: Significant disc space narrowing and vacuum phenomenon at L1-L2, L5-S1 levels. Diffuse disc bulge and posterior marginal osteophytes causing mild spinal canal and bilateral neural foraminal stenosis. Diffuse disc bulge and posterior marginal osteophytes at L1-L2, L2-L3, L3-L4, L4-L5 levels causing mild bilateral neural foraminal stenosis. Facet Joints: Multilevel facet joints arthropathy. Paraspinal Soft Tissues: The paraspinal soft tissues are normal without evidence of mass or abnormal fluid collection. Bilateral mild perinephric stranding. Mild atherosclerotic vascular calcifications. IMPRESSION: 1. 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 2. Grade I retrolisthesis of L1 over L2 vertebra and L5 over S1. 3. Reduced disc space with diffuse disc bulge and posterior marginal osteophytes at L5-S1 level causing mild spinal canal and bilateral neural foraminal stenosis. 4. Diffuse disc bulge and posterior marginal osteophytes at L1-L2, L2-L3, L3-L4, L4-L5 levels causing mild bilateral neural foraminal stenosis. Electronically signed by Soni Bueno 08-03-2024 09:02 AM Lumbar Spine MRI 08/03/24 10:14 MR lumbar spine wo con CLINICAL HISTORY: low back pain; LLE numbness. COMPARISON: 10/10/2005 TECHNIQUE: Multiplanar, multi sequence MRI of the lumbar spine was performed without intravenous contrast. FINDINGS: The conus is within normal limits in size shape and location. No significant vertebral body lesions seen. No aortic aneurysm or periaortic adenopathy identified. There is mild bladder distention. There is a new central disc herniation at T12-L1 that was not evaluated axially. It causes mild, ventral effacement of the adjacent conus. There is progressive degenerative disc disease at L1-L2 with disc space narr owing and disc desiccation. There is a mild diffuse annular bulge with no significant neural compromise. L2-L3 level is unchanged and unremarkable. L3-L4 level demonstrates progressive desiccation of the disc with a slight annulus bulge with no significant neural compromise. L4-L5 level demonstrates newly demonstrated disc desiccation and a left lateral disc protrusion effacing the exiting nerve root within the foramen. L5-S1 level demonstrates disc desiccation with disc space narrowing and a left paracentral disc protrusion essentially unchanged since the prior examination. The left S1 nerve root appears to be compressed within the lateral recess. The right lateral recess is narrowed as well although slightly less pronounced. There is mild bilateral foraminal stenosis left greater than right. Hypertrophic facet arthropathy is noted at this level as well. IMPRESSION: Newly demonstrated a central disc protrusion at T12-L1 causing mild ventral effacement of the adjacent conus. Axial images were not performed. New left lateral disc protrusion at L4-5 causing significant foraminal stenosis. Persistent left paracentral disc protrusion at L5-S1 causing bilateral lateral recess stenosis and foraminal stenosis left greater than right. These findings are essentially unchanged when compared with the prior study. ACT 112: Negative or not required by law. The above report was generated using voice recognition software. It may contain grammatical, syntax or spelling errors. Electronically signed by: Jackelyn Martinez M.D. 08/03/2024 12:39 PM Chest X-Ray 08/03/24 14:48 XR chest 1V portable CLINICAL HISTORY: pre-op COMPARISON STUDY: No previous studies for comparison. FINDINGS: Lung volumes are normal. Lungs are clear. There is no pneumothorax or pleural effusion. Cardiac size is normal. Mediastinal contours are normal. There is no evidence for pulmonary edema. IMPRESSION: No acute cardiopulmonary findings. ACT 112: Negative or not required by law. Electronically signed by: Adrian Solomon M.D. 08/03/2024 3:23 PM Ordered Studies 08/03/24 07:06 CT lumbar spine wo con Stat 08/03/24 10:14 MRI Lumbar Spine [MR lumbar spine wo con] Stat Hospital Course (1) Lumbar herniated disc: (2) Lumbar radicular pain: (3) Ambulatory dysfunction: Patient is a 68 yr female with PMH of hypertension, hyperlipidemia, prediabetes, GERD, sciatica, mood disorder and other medical problems listed below who presents from home with progressive worsening back pain x 1 week. Acute on chronic thoracic and lumbar radiculopathy Lumbar spondylosis/stenosis Lumbar herniated disc --MRI lumbar spine:Newly demonstrated a central disc protrusion at T12-L1 causing mild ventral effacement of the adjacent conus. Axial images were not performed. New left lateral disc protrusion at L4-5 causing significant foraminal stenosis.Persistent left paracentral disc protrusion at L5-S1 causing bilateral lateral recess stenosis and foraminal stenosis left greater than right. These findings are essentially unchanged from previous. --Plan to transition IV Decadron to prolonged taper course of oral steroid Continue PT OT Appreciate orthopedics input Continue Lyrica for now Fall precautions Advised to follow-up with orthopedics on discharge Urinary tract infection Urine culture growing E. coli Empirically on IV Rocephin Transition to oral antibiotics on discharge to complete the course (4) Diabetes mellitus, type II: A1c 6.5 05/24 Hold home agents SSI while in-patient Glycemic consult placed in setting of high dose steroids/possible OR BSG AC HS (5) HTN (hypertension): Hold losartan, HCTZ as blood pressure relatively low Continue metoprolol with holding parameters Monitor platelets closely (6) MDD (major depressive disorder): Continue fluoxetine (7) Hyperlipidemia: Continue statin DVT Px: SCDs for now Code status: FULL CODE Disposition Home Denies home health needs Total Time Total Time Spent Total Time Spent (In Minutes): 46 minutes Discharge Plan Discharge Items Patient Disposition: Home - Self-Care Reason For Visit: ACUTE LUMBAR RADICULOPATHY Discharge Diagnosis: Acute on chronic thoracic and lumbar radiculopathy Lumbar spondylosis/stenosis Lumbar herniated disc Urinary tract infection Activity: Per Instructions section Exercise/Sports: Gradually increase as tolerated Non-emergency contact: Primary Care Provider and Surgeon Call non-emergency contact if: you have any medication questions, your symptoms worsen, your pain is concerning for you and you have a fever Follow-up/Referrals: Aj Gama MD [Surgeon] - (f/u in 2 weeks after discharge) Keerthi Zuluaga DO [Primary Care Provider] - Diet: Carb Consistent or DM2 and Heart Healthy Addtl Attending Provider Instructions: Follow-up with your primary care physician in 1 week Follow-up with your orthopedic surgeon Dr. Gama in 1-2 weeks -- Complete the antibiotic and methylprednisolone taper course as prescribed. Seek immediate medical attention if your symptoms reoccur or worsen Please take all medications as instructed on discharge list below. Please call if you have any questions or problems. You can reach a [facility] hospitalist on duty at [facility] 24 hours a day by calling [phone] Pending Studies at Discharge: No Stand-Alone Forms: My [facility] [place], Smoking Cessation Medications and DC Order Prescriptions: New methylprednisolone [Medrol] 4 mg tablet See Rx Instructions .ROUTE .COMPLEX 18 Days Qty: 63 0RF Rx Instructions: 4 mg tabs orally; 18-day taper -- 6 tabs (24 mg) x 3 days, then 5 tabs (20 mg) x 3 days, then 4 tabs (16 mg) x 3 days, then 3 tabs (12 mg) x 3 days, then 2 tabs (8 mg) x 3 days, then 1 tab (4 mg) x 3 days cefuroxime axetil 250 mg tablet 250 mg PO BID Qty: 6 0RF Rx Instructions: Start taking from 2024 pregabalin [Lyrica] 25 mg capsule 25 mg PO BID Qty: 30 0RF famotidine [Pepcid] 20 mg tablet 20 mg PO BID Qty: 60 0RF Continued metoprolol tartrate 50 mg Tablet 50 mg PO BID Qty: 0 omeprazole 20 mg Capsule,Delayed Release(Dr/Ec) 20 mg PO DAILY Qty: 0 losartan 50 mg tablet 50 mg PO DAILY fluoxetine 40 mg capsule 40 mg PO DAILY ondansetron HCl 4 mg tablet 4 mg PO DIRECTED PRN (Reason: N/V) hydrochlorothiazide 12.5 mg capsule 12.5 mg PO DAILY metformin 500 mg tablet extended release 24 hr 1,000 mg PO BID rosuvastatin 20 mg tablet 20 mg PO DAILY Discharge Orders: Discharge Order (Routine); Ordered 08/05/24 Ordered By: Reji Juares Vangala Krames/Other Patient Handouts: A1C Admission Data Admit Date/Time: 08/03/24 17:40 Attending Provider: Reji Jennings Admit Provider: Charles Lamas Primary Care Provider: Keerthi Zuluaga Other Providers: Nemesio Carrera; Sylvester Bradshaw; Rey Arroyo; Jerilyn Damon; [place] Sr; Aj Gama; Charles Lamas
== END 2024-08-05 15:59 | disposition home or self-care (01) | DRG 552 ==
LOC: ED 06:46 → EDINP 17:40 → SUATTDRO 17:40 → 3N 20:13